=== PATIENT | female | born 1945 | race Caucasian/White ===

== ENCOUNTER → 2018-01-21 13:10 | Outpatient (CLI) | payer MEDICARE, OTHER, SELFPAY ==
--- NOTE | 2018-01-21 | DI.MG.S_ITS ---
BILATERAL DIGITAL SCREENING MAMMOGRAM 3D/2D WITH CAD WITH AUGMENTATION: 01/21/2018 CLINICAL: Routine screening. Comparison is made to exams dated: 11/01/2016 mammogram, 11/01/2015 mammogram, and 10/29/2014 mammogram - [facility]. There are scattered fibroglandular elements in both breasts. Current study was also evaluated with a Computer Aided Detection (CAD) system. Bilateral breast implants are stable. No significant masses, calcifications, or other findings are seen in either breast. There has been no significant interval change. IMPRESSION: NEGATIVE There is no mammographic evidence of malignancy. A 1 year screening mammogram is recommended. This exam was interpreted at Station ID: [id number]. NOTE: For mammograms, a report in lay terms will be sent to the patient. Approximately 15% of breast malignancies will not be visualized mammographically. In the management of a palpable breast mass, a negative mammogram must not discourage biopsy of a clinically suspicious lesion. Electronically Signed By: Eliezer king/clair:01/21/2018 15:58:32 letter sent: Normal Exam ACR BI-RADS Category 1: Negative [id number]
== END ==
PROVIDERS: Family Provider Family Medicine; PCP Family Medicine; Visit Provider Family Medicine
DX: Z12.31 Encounter for screening mammogram for malignant neoplasm of breast (principal)
CPT/HCPCS: 77063; 77067

== ENCOUNTER 2018-02-12 16:13 | Inpatient (IN) | payer MEDICARE, OTHER, SELFPAY ==
[2018-02-12 16:19] VITALS: BP 140/58; PULSE 81; RESP 16; TEMP 35.8; O2SAT 98; BMI 21.2
--- NOTE | 2018-02-12 16:25 | DI.RAD.S_ITS ---
PROCEDURE: XR RIBS RT MIN 3V W CXR 1V INDICATIONS: fell down 4-5 stairs with contusion and pain to R ribs TECHNIQUE: 2 views of the right ribs were acquired, along with a single view chest. COMPARISON: None. FINDINGS: Surgical changes and devices: A zipper projects over the left lung apex. Bones and chest wall: There are acute fractures of the lateral right eighth through 11th ribs. Lungs and pleura: There is a small-sized right apical pneumothorax. Mediastinum: Mediastinal contours appear normal. Heart size is normal. IMPRESSION: Small right apical pneumothorax with acute lateral right eighth through 11th rib fractures. Findings discussed with ordering provider Dr. Bc Mukherjee at approximately 5:26pm on 11/11/[address] Pollock. Dictated by: Deejay Pollock M.D. on 02/12/2018 at 17:23 Approved by: Deejay Pollock M.D. on 02/12/2018 at 17:29
--- NOTE | 2018-02-12 17:06 | ED.BACK ---
HPI - Back Pain/Injury <Tara Claire PA-C - Last Filed: 02/12/18 22:22> General Chief Complaint: Back Pain/Injury Stated Complaint: fall down stairs,back pain Time Seen by Provider: 02/12/18 16:34 Source: patient and family Mode of arrival: ambulatory History of Present Illness HPI Narrative: This 72-year-old female fell down 3-5 steps when she was trying to hurry down the stores to the restroom at their cabin. This happened in the middle of the night. She fell into a wrought iron bench leg, actually broke it. She states she took most of the impact with her ribs, did bump her shoulder and head slightly. She states that she had rib pain right away and feels like she his having muscle spasms in the ribs. She denies any pain elsewhere. She denies any neck or back pain. She denies any new weakness or paresthesia in the extremities. She does not have headache, has not had vomiting, vision change. She states it hurts to take a deep breath but she does not feel short of breath, has not had wheeze or cough. Also painful on the 2+ hour drive back air. She took tramadol which did not help. She took some of her 's oxycodone earlier which helped a little bit, but still in a lot of pain. Related Data Home Medications Medication Instructions Recorded Confirmed aspirin 81 mg PO QPM #0 10/03/11 02/12/18 cholecalciferol (vitamin D3) 2,000 unit PO QPM #0 10/03/11 02/12/18 [Vitamin D3] glucosamine sulfate [Cidatrine] 500 mg PO BID #0 10/25/16 02/12/18 multivitamin [Multiple Vitamins] 1 tab PO QDAY #0 10/25/16 02/12/18 vitamin B complex [B 1 tab PO QDAY #0 10/25/16 02/12/18 Complex-Vitamin B12] diclofenac sodium 1 tab PO BID 02/12/18 02/12/18 levothyroxine [Synthroid] 75 mcg PO QPM 02/12/18 02/12/18 oxybutynin chloride 5 mg PO QPM 02/12/18 02/12/18 tramadol 50 mg PO Q6H PRN PRN 02/12/18 02/12/18 Previous Rx's Medication Instructions Recorded estradiol [Estrace] 0.01 % VAGINAL QDAY #42.5 gm 04/02/17 sertraline 25 mg PO QDAY #30 tab 10/08/17 tretinoin [Retin-A] 1 steven TOPICAL QDAY #30 gm 10/08/17 Allergies Allergy/AdvReac Type Severity Reaction Status Date / Time cucumber [CUCUMBER] Allergy Mild stomach Unverified 10/03/17 12:55 pain Review of Systems <Tara Claire PA-C - Last Filed: 02/12/18 22:22> Review of Systems All systems reviewed & are unremarkable except as noted in HPI and below Exam <Tara Claire PA-C - Last Filed: 02/12/18 22:22> Narrative Exam Narrative: GENERAL APPEARANCE: Patient sitting comfortably, in no distress. HEENT: PERRL, EOMI, no scalp ecchymoses or abrasion, normal oropharynx NECK: Supple, no masses LUNGS: Clear to auscultation bilaterally, splinting. HEART: Rate and rhythm regular without murmur, normal S1 and S2, no S3 or S4. CHEST: Right flank small abrasions and patchy ecchymoses. Tender over the posterior to lateral right-sided mid to inferior ribs. No sternal tenderness. ABDOMEN: Soft, NT, ND, + BS x 4 quadrants NEUROLOGIC: Alert and oriented, normal speech, gait and coordination. MUSCULOSKELETAL: Full Csp AROM without cervical, thoracic, or lumbar point tenderness EXTREMITIES: No cyanosis or edema Initial Vital Signs Initial Vital Signs: Vital Signs Temperature 96.5 F L 02/12/18 16:19 Pulse Rate 81 02/12/18 16:19 Respiratory Rate 16 02/12/18 16:19 Blood Pressure 140/58 H 02/12/18 16:19 Pulse Oximetry 98 02/12/18 16:19 <DO Rohini Fletcher Last Filed: 02/13/18 07:15> Initial Vital Signs Initial Vital Signs: Vital Signs Temperature 96.5 F L 02/12/18 16:19 Pulse Rate 81 02/12/18 16:19 Respiratory Rate 16 02/12/18 16:19 Blood Pressure 140/58 H 02/12/18 16:19 Pulse Oximetry 98 02/12/18 16:19 Course <Tara Claire PA-C - Last Filed: 02/12/18 22:22> Decision to Admit Date: 02/12/18 Decision to Admit time: 17:40 Additional Information: Spoke with Dr. Nuñez agriculture consultant for patient's PCP. She has 4 rib fractures and a small pneumothorax. She is not hypoxic, however reasonable to admit for pain control. She is somewhat improved but still uncomfortable. I advised Dr. Nuñez shoulder XR ordered as well but not complete yet. Reviewed after transfer and negative for acute findings Orders Ordered: ED Orders 02/13/18 08:00 XR chest 2V DAILY Acetaminophen (Tylenol) 650 mg PO Q6HR PRN PRN Reason: As Needed for Fever/Mild Pain Aspirin (Aspirin Ec) 81 mg PO QPM CARA Cyclobenzaprine HCl (Flexeril) 5 mg PO Q8HR PRN PRN Reason: Spasms Last Admin: 02/12/18 20:42 Dose: 5 mg Docusate Sodium (Colace) 100 mg PO BID [facility] Last Admin: 02/12/18 20:42 Dose: 100 mg Hydromorphone HCl (Dilaudid) 0.5 mg IV Q2H PRN PRN Reason: Pain, Severe (7-10) Last Admin: 02/12/18 20:37 Dose: 0.5 mg Hydromorphone HCl (Dilaudid) 1 mg IV Q4H PRN PRN Reason: Pain, Severe (7-10) Last Admin: 02/12/18 22:26 Dose: 1 mg Sodium Chloride (Normal Saline 0.9%) 250 mls @ 21 mls/hr IV Q24H PRN PRN Reason: Flush Ibuprofen (Advil) 600 mg PO Q6HR PRN PRN Reason: As Needed for Fever/Mild Pain Levothyroxine Sodium (Synthroid) 75 mcg PO 0600 [facility] Last Admin: 02/13/18 05:38 Dose: 75 mcg Ondansetron HCl (Zofran) 4 mg IV Q4HR PRN PRN Reason: Nausea And Vomiting Ondansetron HCl (Zofran Odt) 4 mg PO Q4HR PRN PRN Reason: Nausea Oxybutynin (Ditropan) 5 mg PO QPM CARA Oxycodone/Acetaminophen (Percocet 5/325) 1 tab PO Q4HR PRN PRN Reason: Pain, Moderate (4-6) Last Admin: 02/13/18 05:38 Dose: 1 tab Admin: 02/12/18 23:59 Dose: 1 tab Discontinued Medications Diazepam (Valium) 5 mg IV NOW ONE Stop: 02/12/18 17:42 Last Admin: 02/12/18 19:32 Dose: 5 mg Hydromorphone HCl (Dilaudid) 1 mg IV NOW ONE Stop: 02/12/18 17:42 Last Admin: 02/12/18 19:32 Dose: 1 mg Ketorolac Tromethamine (Toradol) 15 mg IV NOW ONE Stop: 02/12/18 17:42 Last Admin: 02/12/18 18:14 Dose: 15 mg Vital Signs - 8 hr 02/13/18 00:31 02/13/18 04:38 Temperature 98.4 F 97.2 F L Pulse Rate 76 74 Respiratory Rate 14 25 H Blood Pressure 153/72 H 127/67 H Pulse Oximetry 100 100 <Bc Mukherjee DO - Last Filed: 02/13/18 07:15> Orders Ordered: ED Orders 02/13/18 08:00 XR chest 2V DAILY Acetaminophen (Tylenol) 650 mg PO Q6HR PRN PRN Reason: As Needed for Fever/Mild Pain Aspirin (Aspirin Ec) 81 mg PO QPM CARA Cyclobenzaprine HCl (Flexeril) 5 mg PO Q8HR PRN PRN Reason: Spasms Last Admin: 02/12/18 20:42 Dose: 5 mg Docusate Sodium (Colace) 100 mg PO BID [facility] Last Admin: 02/12/18 20:42 Dose: 100 mg Hydromorphone HCl (Dilaudid) 0.5 mg IV Q2H PRN PRN Reason: Pain, Severe (7-10) Last Admin: 02/12/18 20:37 Dose: 0.5 mg Hydromorphone HCl (Dilaudid) 1 mg IV Q4H PRN PRN Reason: Pain, Severe (7-10) Last Admin: 02/12/18 22:26 Dose: 1 mg Sodium Chloride (Normal Saline 0.9%) 250 mls @ 21 mls/hr IV Q24H PRN PRN Reason: Flush Ibuprofen (Advil) 600 mg PO Q6HR PRN PRN Reason: As Needed for Fever/Mild Pain Levothyroxine Sodium (Synthroid) 75 mcg PO 0600 [facility] Last Admin: 02/13/18 05:38 Dose: 75 mcg Ondansetron HCl (Zofran) 4 mg IV Q4HR PRN PRN Reason: Nausea And Vomiting Ondansetron HCl (Zofran Odt) 4 mg PO Q4HR PRN PRN Reason: Nausea Oxybutynin (Ditropan) 5 mg PO QPM CARA Oxycodone/Acetaminophen (Percocet 5/325) 1 tab PO Q4HR PRN PRN Reason: Pain, Moderate (4-6) Last Admin: 02/13/18 05:38 Dose: 1 tab Admin: 02/12/18 23:59 Dose: 1 tab Discontinued Medications Diazepam (Valium) 5 mg IV NOW ONE Stop: 02/12/18 17:42 Last Admin: 02/12/18 19:32 Dose: 5 mg Hydromorphone HCl (Dilaudid) 1 mg IV NOW ONE Stop: 02/12/18 17:42 Last Admin: 02/12/18 19:32 Dose: 1 mg Ketorolac Tromethamine (Toradol) 15 mg IV NOW ONE Stop: 02/12/18 17:42 Last Admin: 02/12/18 18:14 Dose: 15 mg Vital Signs - 8 hr 02/13/18 00:31 02/13/18 04:38 Temperature 98.4 F 97.2 F L Pulse Rate 76 74 Respiratory Rate 14 25 H Blood Pressure 153/72 H 127/67 H Pulse Oximetry 100 100 MDM - Back Pain/Injury <Tara Claire PA-C - Last Filed: 02/12/18 22:22> Lab Data Attestation: I reviewed the patient's lab results. Result diagrams: 02/12/18 18:00 02/12/18 18:00 Lab Results 02/12/18 02/12/18 02/12/18 Range/Units 18:00 18:00 19:25 WBC 8.9 (4.5-11.0) X10^3/uL RBC 4.42 (4.0-5.2) X10^6/uL Hgb 13.9 (12.0-16.0) g/dL Hct 41.4 (36-46) % MCV 93.8 (80-100) fL MCH 31.4 (26-34) PG MCHC 33.5 (30-36) % RDW 13.4 (11.6-14.8) % Plt Count 267 (150-400) X10^3/uL Neut % (Auto) 66.5 (50-75) % Lymph % (Auto) 22.7 L (25-40) % [place] % (Auto) 8.9 (3-14) % Eos % (Auto) 1.1 L (2-4) % Baso % (Auto) 0.8 (0-2) % Neut # (Auto) 5900 (1355-2223) /uL Sodium 135 L (137-145) mmol/L Potassium 3.8 (3.4-5.1) mmol/L Chloride 98 (98-107) mmol/L Carbon Dioxide 27 (22-32) mmol/L BUN 18 H (7-17) mg/dL Creatinine 0.50 L (0.52-1.04) mg/dL Estimated GFR > 60.0 (>60) mL/min BUN/Creatinine Ratio 36.0 H (6-22) Glucose 101 (80-110) mg/dL Calcium 9.4 (8.4-10.2) mg/dL Nasal Screen MRSA (PCR) Negative for mrsa (Negative) Imaging Data Chest x-ray: Radiologist's impression: [place] [address] XRay Report Signed Patient: Ritu Zhang MR#: [id number] : 1945 Acct:[id number] Age/Sex: 72 / F Date of Service: 02/12/18 Loc: ED Accession Number: [id number] Procedure: XR ribs RT min 3V w CXR1V Ordering Provider: Bc Mukherjee D.O. PROCEDURE: XR RIBS RT MIN 3V W CXR 1V INDICATIONS: fell down 4-5 stairs with contusion and pain to R ribs TECHNIQUE: 2 views of the right ribs were acquired, along with a single view chest. COMPARISON: None. FINDINGS: Surgical changes and devices: A zipper projects over the left lung apex. Bones and chest wall: There are acute fractures of the lateral right eighth through 11th ribs. Lungs and pleura: There is a small-sized right apical pneumothorax. Mediastinum: Mediastinal contours appear normal. Heart size is normal. IMPRESSION: Small right apical pneumothorax with acute lateral right eighth through 11th rib fractures. Findings discussed with ordering provider Dr. Bc Mukherjee at approximately 5:26pm on 11/11/[address] Pollock. Dictated by: Deejay Pollock M.D. on 02/12/2018 at 17:23 Approved by: Deejay Pollock M.D. on 02/12/2018 at 17:29 shoulder: Radiologist's impression: [place] [address] XRay Report Signed Patient: Ritu Zhang MR#: [id number] : 1945 Acct:[id number] Age/Sex: 72 / F Date of Service: 02/12/18 Loc: [facility] 106-1 Accession Number: [id number] Procedure: XR shoulder RT min 2V Ordering Provider: Tara Claire P.A-C PROCEDURE: XR SHOULDER RT MIN 2V INDICATIONS: pain, s/p fall TECHNIQUE: 3 views of the shoulder were acquired. COMPARISON: [facility], CR, XR RIBS RT MIN 3V W CXR 1V, 02/12/2018, 16:15. FINDINGS: Bones: No acute fracture or dislocation of the right shoulder. Subcentimeter opacity projecting over the right humeral head is consistent with an overlying clothes button, and is also found projecting over the soft tissues of the neck and arm. Soft tissues: Redemonstrated small right apical pneumothorax. IMPRESSION: #1. No acute fracture or dislocation of the right shoulder. #2. Redemonstrated small right apical pneumothorax. Dictated by: Deejay Pollock M.D. on 02/12/2018 at 19:32 Approved by: Deejay Pollock M.D. on 02/12/2018 at 19:35 <Bc Mukherjee DO - Last Filed: 02/13/18 07:15> Lab Data Lab Results 02/12/18 02/12/18 02/12/18 Range/Units 18:00 18:00 19:25 WBC 8.9 (4.5-11.0) X10^3/uL RBC 4.42 (4.0-5.2) X10^6/uL Hgb 13.9 (12.0-16.0) g/dL Hct 41.4 (36-46) % MCV 93.8 (80-100) fL MCH 31.4 (26-34) PG MCHC 33.5 (30-36) % RDW 13.4 (11.6-14.8) % Plt Count 267 (150-400) X10^3/uL Neut % (Auto) 66.5 (50-75) % Lymph % (Auto) 22.7 L (25-40) % [place] % (Auto) 8.9 (3-14) % Eos % (Auto) 1.1 L (2-4) % Baso % (Auto) 0.8 (0-2) % Neut # (Auto) 5900 (1491-3397) /uL Sodium 135 L (137-145) mmol/L Potassium 3.8 (3.4-5.1) mmol/L Chloride 98 (98-107) mmol/L Carbon Dioxide 27 (22-32) mmol/L BUN 18 H (7-17) mg/dL Creatinine 0.50 L (0.52-1.04) mg/dL Estimated GFR > 60.0 (>60) mL/min BUN/Creatinine Ratio 36.0 H (6-22) Glucose 101 (80-110) mg/dL Calcium 9.4 (8.4-10.2) mg/dL Nasal Screen MRSA (PCR) Negative for mrsa (Negative) Discharge Plan Departure Patient Disposition: Admitted as Observation Clinical Impression: Multiple rib fractures Discharge Date/Time: 02/12/18 19:34 Interventions: ED Discharge Assessment Last Done: 02/12/18 19:17 Admit Date/Time: 02/12/18 19:15 Admit Provider: Danya Nuñez <Bc Mukherjee DO - Last Filed: 02/13/18 07:15> Cosign ED Attending Nga Attestation: I was available for consultation during this patient's emergency department encounter
[2018-02-12 18:12] LABS: Add Manual Diff / Slide Review NO; Basophils Percent Auto 0.8 % (0-2); Eosinophils Percent Auto 1.1 % (2-4); Hematocrit 41.4 % (36-46); Hemoglobin 13.9 g/dL (12.0-16.0); Lymphocytes Percent Auto 22.7 % (25-40); Mean Corpuscular HGB Conc 33.5 % (30-36); Mean Corpuscular Hemoglobin 31.4 PG (26-34); Mean Corpuscular Volume 93.8 fL (80-100); Monocytes Percent Auto 8.9 % (3-14); Neutrophils Absolute Auto 5900 /uL (3000-5900); Neutrophils Percent Auto 66.5 % (50-75); Platelet Count 267 X10^3/uL (150-400); Red Blood Cell Count 4.42 X10^6/uL (4.0-5.2); Red Cell Distribution Width 13.4 % (11.6-14.8); White Blood Cell Count 8.9 X10^3/uL (4.5-11.0)
[2018-02-12] MEDS: KETOROLAC 60 MG/2 ML VIAL 15 MG IV (18:14)
--- NOTE | 2018-02-12 18:16 | PC.NURSE ---
valium and dilaudid will not scan
[2018-02-12 18:29] VITALS: BP 139/65; PULSE 74; RESP 12; O2SAT 100
[2018-02-12 18:29] LABS: Blood Urea Nitrogen 18 mg/dL (7-17); Calcium 9.4 mg/dL (8.4-10.2); Carbon Dioxide 27 mmol/L (22-32); Chloride 98 mmol/L (98-107); Estimated Glomerular Filt Rate > 60.0 mL/min (>60); Glucose 101 mg/dL (80-110); HEMOLYSIS < 15 (0-50); Potassium 3.8 mmol/L (3.4-5.1); Sodium 135 mmol/L (137-145)
--- NOTE | 2018-02-12 18:59 | DI.RAD.S_ITS ---
PROCEDURE: XR SHOULDER RT MIN 2V INDICATIONS: pain, s/p fall TECHNIQUE: 3 views of the shoulder were acquired. COMPARISON: [facility], CR, XR RIBS RT MIN 3V W CXR 1V, 02/12/2018, 16:15. FINDINGS: Bones: No acute fracture or dislocation of the right shoulder. Subcentimeter opacity projecting over the right humeral head is consistent with an overlying clothes button, and is also found projecting over the soft tissues of the neck and arm. Soft tissues: Redemonstrated small right apical pneumothorax. IMPRESSION: #1. No acute fracture or dislocation of the right shoulder. #2. Redemonstrated small right apical pneumothorax. Dictated by: Deejay Pollock M.D. on 02/12/2018 at 19:32 Approved by: Deejay Pollock M.D. on 02/12/2018 at 19:35
[2018-02-12] MEDS: HYDROMORPHONE 1 MG INJ IV (19:32)
[2018-02-12] MEDS: diazePAM 10 MG/2 ML SYRINGE 5 MG IV (19:32)
[2018-02-12 19:50] VITALS: BP 136/64; PULSE 63; RESP 20; TEMP 36.3; O2SAT 95
[2018-02-12 20:00] VITALS: BMI 21.2
--- NOTE | 2018-02-12 20:04 | PM.HP.1 ---
History of Present Illness Date Patient Seen: 02/12/18 Time Patient Seen: 20:19 Chief complaint: fall down stairs,back pain Narrative: PCP: Dr. Cordova. Patient is a 72-year-old female with hypothyroidism and urinary incontinence who suffered a fall today. Patient was at her cabin in the [facility] with her . She woke at approximately 2:00 a.m. needing to use the bathroom. On her way down the stairs she started to leak urine then slipped and fell, sliding down the stairs and hitting her right side on a wrought iron bench. The bench broke and she had immediate pain in her right side. She and her packed up the house and came back to [place]. She presented to the emergency department due to severe pain. Patient states the pain is sharp in her right side. Rates it 7/10. Her main complaint is muscle spasm. In the emergency department she was found to have fractures of the right eighth through eleventh ribs as well as a small right apical pneumothorax. Patient denied shortness of breath. Oxygen saturations were normal. She is being admitted for monitoring of her pneumothorax and pain control. In the emergency department she received Toradol, diazepam and Dilaudid with some improvement in her pain. Of note patient had a normal DEXA scan in 2013. Past medical history Hypothyroidism Urinary incontinence Arthritis Anxiety and depression Past surgical history Hysterectomy Face lift Breast augmentation x2 Cataract Family history Non contributory Social history Patient is . Former smoker. Uses alcohol. No drug use. Patient History Medical History Hypothyroidism (Chronic) Surgical History Status post breast augmentation Status post hysterectomy Family & Social History Family History: Reviewed 02/12/18 by Danya Nuñez DO Safety & Behavioral: Feels Safe in Current Yes Environment Been Physically Hurt or No Threatened By a Person Tobacco & Substance use: Smoking Status Never smoker alcohol intake frequency holiday/special occasion Substance Use Type does not use Meds Home Medications Medication Instructions Recorded Confirmed Type aspirin 81 mg PO QPM #0 10/03/11 02/12/18 History cholecalciferol (vitamin D3) 2,000 unit PO QPM #0 10/03/11 02/12/18 History [Vitamin D3] glucosamine sulfate [Cidatrine] 500 mg PO BID #0 10/25/16 02/12/18 History multivitamin [Multiple Vitamins] 1 tab PO QDAY #0 10/25/16 02/12/18 History vitamin B complex [B 1 tab PO QDAY #0 10/25/16 02/12/18 History Complex-Vitamin B12] estradiol [Estrace] 0.01 % VAGINAL QDAY #42.5 gm 04/02/17 02/12/18 Rx sertraline 25 mg PO QDAY #30 tab 10/08/17 02/12/18 Rx tretinoin [Retin-A] 1 steven TOPICAL QDAY #30 gm 10/08/17 02/12/18 Rx diclofenac sodium 1 tab PO BID 02/12/18 02/12/18 History levothyroxine [Synthroid] 75 mcg PO QPM 02/12/18 02/12/18 History oxybutynin chloride 5 mg PO QPM 02/12/18 02/12/18 History tramadol 50 mg PO Q6H PRN PRN 02/12/18 02/12/18 History Allergies Allergy/AdvReac Type Severity Reaction Status Date / Time cucumber [CUCUMBER] Allergy Mild stomach Unverified 10/03/17 12:55 pain Review of Systems Constitutional Constitutional: Denies fatigue and Reports fever(s) Cardiovascular Cardiovascular: Denies chest pain, Denies foot swelling and Denies shortness of breath Respiratory Respiratory: Denies cough and Denies dyspnea Musculoskeletal Musculoskeletal: Reports back pain Endocrine Endocrine: Denies fatigue Exam Vital Signs (past 8 hours): - 02/12/18 16:19 02/12/18 18:29 02/12/18 19:50 Temperature 96.5 F L 97.4 F L Pulse Rate 81 74 63 Respiratory Rate 16 12 20 Blood Pressure 140/58 H 136/64 H Blood Pressure [Right Arm] 139/65 H Pulse Oximetry 98 100 95 Oxygen Delivery Method Room Air Narrative Exam Narrative: General appearance: Well-appearing, NAD. Appears younger than stated age. Comfortable. Head: Normocephalic, atraumatic, without obvious abnormality. Eyes: Conjunctivae/corneas clear. Nose: Nares normal. Mucosa pink and moist. Throat: Moist mucosa. Neck: No adenopathy, supple, symmetric, trachea midline. Lungs: Clear to auscultation bilaterally, no wheezes or crackles. Heart: Regular rate and rhythm, S1, S2 normal, no murmur. Back: Large area of ecchymosis over the right flank. Tender to palpation. Extremities: Extremities normal, atraumatic, no edema. Neurologic: Alert and oriented x3. Gait not assessed. Psych: Alert and oriented to person, time, and place. Mood and affect appropriately modulated. Judgment and insight regarding health issues, within normal limits. Recent and remote memory intact. Objective Imaging Chest x-ray: Radiologist's impression: Rib x-ray IMPRESSION: Small right apical pneumothorax with acute lateral right eighth through 11th rib fractures. Findings discussed with ordering provider Dr. Bc Mukherjee at approximately 5:26pm on 11/11/[address] Pollock. Dictated by: Deejay Pollock M.D. on 02/12/2018 at 17:23 Approved by: Deejay Pollock M.D. on 02/12/2018 at 17:29 Shoulder x-ray: Radiologist's impression: IMPRESSION: #1. No acute fracture or dislocation of the right shoulder. #2. Redemonstrated small right apical pneumothorax. Dictated by: Deejay Pollock M.D. on 02/12/2018 at 19:32 Approved by: Deejay Pollock M.D. on 02/12/2018 at 19:35 Labs Result Diagrams: 02/12/18 18:00 02/12/18 18:00 Labs: Laboratory Results - last 24 hr 02/12/18 02/12/18 18:00 18:00 WBC 8.9 RBC 4.42 Hgb 13.9 Hct 41.4 MCV 93.8 MCH 31.4 MCHC 33.5 RDW 13.4 Plt Count 267 Neut % (Auto) 66.5 Lymph % (Auto) 22.7 L [place] % (Auto) 8.9 Eos % (Auto) 1.1 L Baso % (Auto) 0.8 Neut # (Auto) 5900 Sodium 135 L Potassium 3.8 Chloride 98 Carbon Dioxide 27 BUN 18 H Creatinine 0.50 L Estimated GFR > 60.0 BUN/Creatinine Ratio 36.0 H Glucose 101 Calcium 9.4 Assessment & Plan (1) Multiple rib fractures: Qualifiers: Encounter type: initial encounter Fracture healing: Fracture type: closed Laterality: right Qualified Code(s): S22.41XA - Multiple fractures of ribs, right side, initial encounter for closed fracture Current visit: Yes Status: Acute (2) Pneumothorax: Qualifiers: Pneumothorax type: traumatic Encounter type: initial encounter Qualified Code(s): S27.0XXA - Traumatic pneumothorax, initial encounter Current visit: Yes Status: Acute (3) Acquired hypothyroidism: Current visit: No Status: None (4) Urinary incontinence: Current visit: Yes Status: Chronic Plan: Assessment/Plan Narrative: 72-year-old female with hypothyroidism in urinary incontinence now with multiple right rib fractures and a small pneumothorax after a fall down the stairs early this morning. Fortunately patient is asymptomatic from the pneumothorax. No indication for chest tube placement. We are admitting for pain control and monitoring of her pneumothorax. Plan - Patient's main complaint is muscle spasms so will add Flexeril - Percocet is available with IV Dilaudid for more severe pain - Will check another x-ray in the morning to re-evaluate her pneumothorax - Continue levothyroxine and oxybutynin for hypothyroidism in urinary incontinence Diet: General diet DVT prophylaxis: SCDs Code status: Full code Disposition: Patient is currently under observation for pain control and the small pneumothorax. If pain is well controlled with oral medication and pneumothorax is stable or decreasing in size she may be able to go home tomorrow.
[2018-02-12 20:17] VITALS: BMI 21.2
[2018-02-12] MEDS: HYDROMORPHONE 0.5 MG INJ IV (20:37)
[2018-02-12] MEDS: DOCUSATE 100 MG CAPSULE PO (20:42)
[2018-02-12] MEDS: CYCLOBENZAPRINE 5 MG TABLET PO (20:42)
--- NOTE | 2018-02-12 21:10 | PC.NURSE ---
2100- Patient admitted to room 106 from Emergency. Patient is alert and oriented. Vitals are stable room air saturation is 97% Patient assisted to the bed and oriented to the room. Patient states her pain is 7/10. Await MD orders. Patient has right posterior rib fractures with a small pneumothorax. Patient denies SOB at this time. Patient advised to call for assist and is a high risk for falls. Patient is NSR on the monitor. Medicated for pain per MD order (here to see patient about 2014) Patient is stable
[2018-02-12] MEDS: HYDROMORPHONE 0.5 MG INJ 1 MG IV (22:26)
[2018-02-12] MEDS: OXYCODONE/ACETAMINOPHEN 5/325 TABLET 1 TAB PO (23:59)
[2018-02-13 00:31] VITALS: BP 153/72; PULSE 76; RESP 14; TEMP 36.9; O2SAT 100
[2018-02-13 04:38] VITALS: BP 127/67; PULSE 74; RESP 25; TEMP 36.2; O2SAT 100
[2018-02-13] MEDS: OXYCODONE/ACETAMINOPHEN 5/325 TABLET 1 TAB PO (05:38)
[2018-02-13] MEDS: LEVOTHYROXINE 75 MCG TABLET PO (05:38)
[2018-02-13 07:25] VITALS: BP 138/55; PULSE 81; RESP 18; TEMP 36.4; O2SAT 100
[2018-02-13] MEDS: DOCUSATE 100 MG CAPSULE PO ×2 (07:40→21:03)
[2018-02-13] MEDS: CYCLOBENZAPRINE 5 MG TABLET PO ×2 (07:40→16:30)
--- NOTE | 2018-02-13 08:00 | DI.RAD.S_ITS ---
PROCEDURE: XR CHEST 2V INDICATIONS: Pneumothorax TECHNIQUE: 2 views of the chest were acquired. COMPARISON: [facility], CR, XR RIBS RT MIN 3V W CXR 1V, 02/12/2018, 16:15. [facility], CR, XR SHOULDER RT MIN 2V, 02/12/2018, 18:38. FINDINGS: Surgical changes and devices: None. Lungs and pleura: Slight right lower hemithorax pleural effusion and increasing pneumothorax. Right apical pneumothorax identified yesterday was 4.2 cm maximal craniocaudad dimension and currently is 2.7 cm. Lungs are clear. Mediastinum: Mediastinal contours are normal. Heart size is normal. Bones and chest wall: No suspicious bony abnormalities. Soft tissues appear unremarkable. IMPRESSION: Interval reduction in right sided pneumothorax from 4.2 cm yesterday to 2.7 cm the day. Slight right lung base pleural effusion, subpulmonic Dictated by: Han Joel M.D. on 02/13/2018 at 8:33 Approved by: Han Joel M.D. on 02/13/2018 at 8:36
[2018-02-13] MEDS: OXYCODONE/ACETAMINOPHEN 5/325 TABLET 2 TAB PO ×4 (09:11→21:06)
[2018-02-13] MEDS: HYDROMORPHONE 0.5 MG INJ IV ×2 (10:23→23:44)
[2018-02-13 11:51] VITALS: BP 131/59; PULSE 72; RESP 18; TEMP 36.6; O2SAT 96
--- NOTE | 2018-02-13 13:30 | PM.PN.1 ---
Subjective Date Patient Seen: 02/13/18 Time Patient Seen: 07:30 Interval history: Pain is a little better this morning though still quite sore. Able to get out of bed independently. Can take a deep breath but it is painful. Rates pain as 7/10 this morning. Percocet helps significantly. Has needed some IV dilaudid. The Flexeril last night may have helped since the muscle spasms are not bothering her as much. Denies chest pain or SOB. Exam Vital Signs (past 8 hours): - 02/13/18 07:25 02/13/18 11:51 Temperature 97.6 F 98 F Pulse Rate 81 72 Respiratory Rate 18 18 Blood Pressure 138/55 H 131/59 H Pulse Oximetry 100 96 Oxygen Delivery Method Room Air Oxygen Flow Rate 0 Narrative Exam Narrative: General: Awake and alert, no acute distress. HEENT: NCAT, EOMI, moist oral mucosa CV: Regular rate and rhythm, no murmurs, rubs or gallops Lungs: CTAB, no wheezes, rales, or rhonchi Back: Large ecchymosis over right flank Extremities: Warm, no edema, 2+ pedal pulses bilaterally Objective Labs Result Diagrams: 02/12/18 18:00 02/12/18 18:00 Labs: Laboratory Results - last 24 hr 02/12/18 02/12/18 02/12/18 18:00 18:00 19:25 WBC 8.9 RBC 4.42 Hgb 13.9 Hct 41.4 MCV 93.8 MCH 31.4 MCHC 33.5 RDW 13.4 Plt Count 267 Neut % (Auto) 66.5 Lymph % (Auto) 22.7 L M[place]re[place] % (Auto) 8.9 Eos % (Auto) 1.1 L Baso % (Auto) 0.8 Neut # (Auto) 5900 Sodium 135 L Potassium 3.8 Chloride 98 Carbon Dioxide 27 BUN 18 H Creatinine 0.50 L Estimated GFR > 60.0 BUN/Creatinine Ratio 36.0 H Glucose 101 Calcium 9.4 Nasal Screen MRSA (PCR) Negative for mrsa Assessment & Plan (1) Pneumothorax: Qualifiers: Pneumothorax type: traumatic Encounter type: initial encounter Qualified Code(s): S27.0XXA - Traumatic pneumothorax, initial encounter Current visit: Yes Status: Acute (2) Multiple rib fractures: Qualifiers: Encounter type: initial encounter Fracture healing: Fracture type: closed Laterality: right Qualified Code(s): S22.41XA - Multiple fractures of ribs, right side, initial encounter for closed fracture Current visit: Yes Status: Acute Plan: Assessment/Plan Narrative: 72-year-old female with multiple rib fractures and small pneumothorax after a fall yesterday. Pain adequately controlled with oral and IV pain medications. Pneumothorax decreased in size today compared to yesterday. Patient continues to be asymptomatic with respect to pneumothorax. Plan - Continue oral pain medication with IV available for severe pain - Continue Flexeril as needed for spasm - Continue levothyroxine oxybutynin Anticipate discharge home tomorrow if pain is adequately controlled without IV medication. Quality VTE Deep Vein Thrombosis/Pulmonary Embolism Present on Admission: No
--- NOTE | 2018-02-13 15:58 | CM.DANOTE ---
Discharge Planning/Care Management DCP: assessment: case received, EMR reviewe, discussed case in 929 Care Team meeting, conferred with NIKKO Drummond and then met with pt. Introduced self and role. Pt is a 72 thom old female who admitted last evening to care of Dr. Nuñez/RAMONITA. PCP: Dr. Cordova/RAMONITA Payer: Medicare and [facility]. Admission status: INPT/confirmed by UR NIKKO Penaloza. Pt is ok'd for in room independence. Is using the BSC for now. She notes the rib fractures are amazingly painful but is able to get about the room without AD. PT has not thus far been ordered or, per RN, indicated. Pt confirms that she fell down the stairs at their cabin in the [place]. the stairs are old and steep. it was dark and I was using a flashlight in attempt to get to the bathroom on the main floor. She notes bladder urgency issues factored heavily into this event. Pt reports she and her already have plans to change their bedroom at the cabin to the main level. She says she expects Dr. Nuñez to let her go home tomorrow. DCP team will check in prn to assist with any needs that may arise. CM Discharge Assessment Start: 02/13/18 15:57 Freq: Status: Active Protocol: Document 02/13/18 15:57 ITV (Rec: 02/13/18 15:58 ITV [id number]) Discharge Planning Assessment Advance Directives? No History Provided By Patient Medical Record Prior Living Arrangements House Household Members spouse Independent with ADL's Yes Is patient alert and oriented? Yes Transportation Arrangement spouse Whiteboard Updated in Patient Room with Yes name and ext. # of Shot Examiner Review Status In Process Next Review Type Continued Stay Review
[2018-02-13] MEDS: OXYBUTYNIN 5 MG TABLET PO (16:30)
[2018-02-13] MEDS: ASPIRIN EC 81 MG TABLET PO (16:30)
--- NOTE | 2018-02-13 16:36 | PC.NURSE ---
1630- Patient lying in bed. Patient states she is having significant pain with any movement. Patient rates her pain at 7/10, medicated per orders. No crepitus appreciated to right chest. Right middle lobe and lower lobe coarse and dim at the base. Room air saturation 95% Patient is not tachypnic at this time. Patient encouraged to get up for dinner. SCD's are on bilaterally calfs. Will monitor.
[2018-02-13 23:55] VITALS: BP 121/66; PULSE 75; RESP 16; TEMP 36.7; O2SAT 96
[2018-02-14] MEDS: OXYCODONE/ACETAMINOPHEN 5/325 TABLET 2 TAB PO ×3 (02:11→11:23)
[2018-02-14] MEDS: CYCLOBENZAPRINE 5 MG TABLET PO ×2 (02:12→09:19)
[2018-02-14 04:38] VITALS: BP 132/54; PULSE 73; RESP 16; TEMP 36.4; O2SAT 95
[2018-02-14] MEDS: LEVOTHYROXINE 75 MCG TABLET PO (06:50)
[2018-02-14 08:11] VITALS: BP 137/72; PULSE 78; RESP 18; TEMP 36.9; O2SAT 97
[2018-02-14] MEDS: DOCUSATE 100 MG CAPSULE PO (08:13)
--- NOTE | 2018-02-14 08:51 | PM.DS.1 ---
History of Present Illness Date Patient Seen: 02/14/18 Time Patient Seen: 08:08 Chief complaint: fall down stairs,back pain Narrative: Patient is a 72-year-old female with hypothyroidism and urinary incontinence who suffered a fall today. Patient was at her cabin in the [facility] with her . She woke at approximately 2:00 a.m. needing to use the bathroom. On her way down the stairs she started to leak urine then slipped and fell, sliding down the stairs and hitting her right side on a wrought iron bench. The bench broke and she had immediate pain in her right side. She and her packed up the house and came back to [place]. She presented to the emergency department due to severe pain. Patient states the pain is sharp in her right side. Rates it 7/10. Her main complaint is muscle spasm. In the emergency department she was found to have fractures of the right eighth through eleventh ribs as well as a small right apical pneumothorax. Patient denied shortness of breath. Oxygen saturations were normal. She is being admitted for monitoring of her pneumothorax and pain control. In the emergency department she received Toradol, diazepam and Dilaudid with some improvement in her pain. Of note patient had a normal DEXA scan in 2013. Discharge Providers Date of admission: 02/13/18 11:26 Primary care physician: Gilberto Cordova MD Discharge provider: Yin Mcnally DO Summary Discharge Diagnosis: Right sided pneumothorax Right sided rib fractures osteoarthritis hypothyroid Hospital Course: 72-year-old female with right sided rib fractures 8-11 and small pneumothorax after a fall. Pneumothorax decreased in size during first hospital day. Patient remained asymptomatic with respect to pneumothorax. Pain at first was difficult to control and required IV. Cyclobenzaprine was added and helped. Patient was tolerating 10 mg of oxycodone every 4 hours at discharge. She take diclofenac at home and adding this is likely to give her more pain relief. Levothyroxine and oxybutinin were continued for her hypothyroid and urinary urgency. She was discharged in good condition. Follow up in clinic in 7-10 days with repeat xray. Exam Vital Signs (past 8 hours): - 02/14/18 04:38 02/14/18 08:11 Temperature 97.5 F L 98.5 F Pulse Rate 73 78 Respiratory Rate 16 18 Blood Pressure 132/54 H 137/72 H Pulse Oximetry 95 97 Oxygen Delivery Method Room Air Oxygen Flow Rate 0 Narrative Exam Narrative: General: Awake and alert, no acute distress. HEENT: NCAT, EOMI, moist oral mucosa CV: Regular rate and rhythm, no murmurs, rubs or gallops Lungs: CTAB, no wheezes, rales, or rhonchi Back: Large ecchymosis over right flank Extremities: Warm, no edema, 2+ pedal pulses bilaterally Objective Labs Result Diagrams: 02/12/18 18:00 02/12/18 18:00 Discharge Plan Discharge Plan Patient Disposition: Home Provider Discharge Instructions Diet: Diet as Tolerated Activity: as tolerated Skin/Wound/Dressing Care Report to your healthcare provider any signs of infection, such as:: chills, fever, night sweats and increased pain Discharge Data Primary Care Provider: Gilberto Cordova Attending Provider: Danya Nuñez Admit Date/Time: 02/13/18 11:26 Discharges patient from system. Discharge Date/Time: 02/14/18 13:00 Quality VTE Deep Vein Thrombosis/Pulmonary Embolism Present on Admission: No
--- NOTE | 2018-02-14 09:14 | CM.DPC ---
DCP Cont: Checked in with patient. Is planning to go home today. Asked her about support system, stated that she has her . Stated that her pain had decreased today, and feels that she is ready to go. Stated that yesterday, she was still having a lot of pain, and was not ready to be discharged then. Patient did not feel that she needed any additional resources at this time. P: To be discharged home today. Grisel Colorado RN/Wind Operations Supervisor
[2018-02-14] MEDS: KETOROLAC 30 MG/ML VIAL IV (09:19)
== END 2018-02-14 13:00 | disposition home or self-care (01) | DRG 200 ==
LOC: ED 19:08 → ICU 19:16
PROVIDERS: Admitting Provider Family Medicine; Emergency Provider Internal Medicine; Family Provider Family Medicine; PCP Family Medicine; Visit Provider Family Medicine
DX: S27.0XXA Traumatic pneumothorax, initial encounter (principal); S22.41XA Multiple fractures of ribs, right side, initial encounter for closed fracture; W10.8XXA Fall (on) (from) other stairs and steps, initial encounter; Y92.008 Other place in unspecified non-institutional (private) residence as the place of occurrence of the external cause; E03.9 Hypothyroidism, unspecified; R32 Unspecified urinary incontinence; M62.838 Other muscle spasm; F41.9 Anxiety disorder, unspecified; F32.9 Major depressive disorder, single episode, unspecified
CPT/HCPCS: 36591; 71046; 71101; 73030; 80048; 85025; 87797; 96374; 96375; 99232; 99238; 99282; 99284; G0378; J1170; J1885; J3360

== ENCOUNTER 2018-02-23 10:53 | Emergency (ER) | payer MEDICARE, OTHER, SELFPAY ==
--- NOTE | 2018-02-23 10:56 | DI.RAD.S_ITS ---
PROCEDURE: XR CHEST 2V INDICATIONS: recent pneumo TECHNIQUE: 2 views of the chest were acquired. COMPARISON: [facility], CR, XR CHEST 2V, 02/13/2018, 8:15. FINDINGS: Surgical changes and devices: None. Lungs and pleura: No recurrent pneumothorax visualized. There is a loculated appearing right basilar pleural effusion which is increased when compared with the study dated 02/13/18. There is likely a nipple shadow projected over the left lung base. Mediastinum: Mediastinal contours are normal. Heart size is normal. Bones and chest wall: No suspicious bony abnormalities. Soft tissues appear unremarkable. IMPRESSION: Increased right pleural effusion when compared with the prior study from earlier this month. No recurrent pneumothorax appreciated. Dictated by: Jovita Meyer M.D. on 02/23/2018 at 11:31 Approved by: Jovita Meyer M.D. on 02/23/2018 at 11:31
--- NOTE | 2018-02-23 11:02 | ED_ITS ---
HPI - Syncope General Chief Complaint: Syncope Stated Complaint: syncope Time Seen by Provider: 02/23/18 10:55 Source: patient and EMS Mode of arrival: EMS Limitations: no limitations History of Present Illness HPI narrative: Patient is a 72-year-old female who presents after syncopal episode after a bowel movement, which was diarrhea. She did not hit her head. She was having a bowel movement she stood up to wash her hands and fell backwards. She denies any chest pain heart palpitations or shortness of breath. She not had any abdominal pain nausea vomiting or fevers. Related Data Home Medications Medication Instructions Recorded Confirmed aspirin 81 mg PO QPM #0 10/03/11 02/12/18 cholecalciferol (vitamin D3) 2,000 unit PO QPM #0 10/03/11 02/12/18 [Vitamin D3] glucosamine sulfate [Cidatrine] 500 mg PO BID #0 10/25/16 02/12/18 multivitamin [Multiple Vitamins] 1 tab PO QDAY #0 10/25/16 02/12/18 vitamin B complex [B 1 tab PO QDAY #0 10/25/16 02/12/18 Complex-Vitamin B12] diclofenac sodium 1 tab PO BID 02/12/18 02/12/18 levothyroxine [Synthroid] 75 mcg PO QPM 02/12/18 02/12/18 oxybutynin chloride 5 mg PO QPM 02/12/18 02/12/18 tramadol 50 mg PO Q6H PRN PRN 02/12/18 02/12/18 Previous Rx's Medication Instructions Recorded estradiol [Estrace] 0.01 % VAGINAL QDAY #42.5 gm 04/02/17 sertraline 25 mg PO QDAY #30 tab 10/08/17 tretinoin [Retin-A] 1 steven TOPICAL QDAY #30 gm 10/08/17 docusate sodium 100 mg PO BID #30 cap 02/14/18 oxycodone-acetaminophen 2 tab PO Q4HR PRN #45 tab 02/14/18 cyclobenzaprine 5 mg tablet 5 mg PO Q8HR PRN #15 tab 02/20/18 Allergies Allergy/AdvReac Type Severity Reaction Status Date / Time cucumber [CUCUMBER] Allergy Mild stomach Verified 02/13/18 11:16 pain Review of Systems Review of Systems All systems reviewed & are unremarkable except as noted in HPI and below Constitutional Denies chills, Denies fever(s), Denies lethargy and Denies weakness Cardiovascular Denies chest pain at rest, Reports syncope, Denies irregular heart rhythm, Denies palpitations, Denies dyspnea and Denies dyspnea on exertion Respiratory Denies cough, Denies dyspnea, Denies dyspnea on exertion and Denies wheezing Gastrointestinal Gastrointestinal: Denies abdominal pain, Denies change in bowel habits, Denies diarrhea, Denies nausea and Denies vomiting Musculoskeletal Denies back pain, Denies muscle weakness, Denies numbness and Denies tingling Integumentary/Breasts Denies pruritus, Denies erythema, Denies rash and Denies wounds Neurologic Reports syncope, Denies numbness, Denies tingling and Denies weakness Endocrine Denies palpitations Allergic/Immunologic Denies wheezing PFSH Medical History Anxiety (Chronic) Cataracts, bilateral (Chronic ~1999) Depression (Chronic) Eczema (Chronic ~2004) Fibroids (Chronic ~1994) Gout (Chronic ~2010) History of urinary incontinence (Chronic ~1989) Hyperlipidemia (Chronic) Hypothyroidism (Chronic) Osteoarthritis (Chronic ~1994) Chicken pox (Resolved ~1949) Measles (Resolved) Surgical History Anesthesia (Resolved) Status post breast augmentation Status post hysterectomy (~1996) Social History household members: spouse Smoking Status: Never smoker alcohol intake: current Exam Initial Vital Signs Initial Vital Signs: Vital Signs Temperature 98.1 F 02/23/18 11:15 Pulse Rate 109 H 02/23/18 11:15 Respiratory Rate 15 02/23/18 11:15 Blood Pressure 120/58 L 02/23/18 11:15 Pulse Oximetry 95 02/23/18 11:15 GENERAL: Alert well-appearing elderly female no sign of trauma and in [no acute ] distress. HEENT: Head atraumatic,EOMI, pupils reactive, face symmetric, neck is supple no vertebral tenderness CARDIOVASCULAR: Regular rate and rhythm without murmurs, rubs or gallops. RESPIRATORY: Breath sounds equal bilaterally, no wheezes rales or rhonchi. ABDOMEN: Soft, nontender. Normoactive bowel sounds all 4 quadrants. No guarding or rebound. EXTREMITIES: Normal range of motion, no clubbing or edema. Neurovascularly intact NEUROLOGICAL: Alert and oriented x4.Normal gait and speech. Cranial nerves II through XII grossly intact. Good [id number], good [id number], strength equal bilaterally, no dysarthria or aphasia, sensation in tact to soft touch bilaterally, no visual changes, no facial droop SKIN: Warm, dry, no laceration, no petechiae, no rashes or lesions. Scores NIH Stroke Scale Level of Conciousness: Alert, keenly responsive Ask month/age: Answers both questions correctly. Open/close eyes, close hand: Performs both tasks correctly Best gaze horizontal: Normal Visual ogden: No visual loss Facial palsy: Normal symetrical movement Left arm drift: No drift for full 10 sec Right arm drift: No drift for full 10 sec Left leg drift: No drift for full 10 sec Right leg drift: No drift for full 10 sec Limb ataxia: Absent Sensory on face/arms/legs: Normal, no sensory loss Best language: No aphasia, normal Dysarthria: Normal Extinction or inattention: No abnormality Total NIH Stroke scale score: 0 Course Orders Ordered: Discontinued Medications Sodium Chloride (Normal Saline 0.9%) 1,000 mls @ 150 mls/hr IV CONT CARA Last Infusion: 02/23/18 12:33 Dose: 0 mls/hr Infusion: 02/23/18 12:27 Dose: 0 mls/hr Admin: 02/23/18 11:35 Dose: 150 mls/hr MDM - Syncope Lab Data Attestation: I reviewed the patient's lab results. Result diagrams: 02/23/18 10:45 02/23/18 10:45 Lab Results 02/23/18 02/23/18 Range/Units 10:45 10:45 WBC 10.9 (4.5-11.0) X10^3/uL RBC 3.86 L (4.0-5.2) X10^6/uL Hgb 12.1 (12.0-16.0) g/dL Hct 35.6 L (36-46) % MCV 92.4 (80-100) fL MCH 31.4 (26-34) PG MCHC 34.0 (30-36) % RDW 12.8 (11.6-14.8) % Plt Count 421 H (150-400) X10^3/uL Neut % (Auto) 62.5 (50-75) % Lymph % (Auto) 23.5 L (25-40) % [place] % (Auto) 8.0 (3-14) % Eos % (Auto) 5.5 H (2-4) % Baso % (Auto) 0.5 (0-2) % Neut # (Auto) 6800 H (8247-3394) /uL Sodium 141 (137-145) mmol/L Potassium 4.3 (3.4-5.1) mmol/L Chloride 104 (98-107) mmol/L Carbon Dioxide 27 (22-32) mmol/L BUN 14 (7-17) mg/dL Creatinine 0.50 L (0.52-1.04) mg/dL Estimated GFR > 60.0 (>60) mL/min BUN/Creatinine Ratio 28.0 H (6-22) Glucose 122 H (80-110) mg/dL Calcium 9.1 (8.4-10.2) mg/dL Total Bilirubin 0.5 (0.2-1.3) mg/dL AST 21 (14-36) IU/L ALT 23 (9-52) IU/L Alkaline Phosphatase 69 (38-126) U/L Total Creatine Kinase 28 L (30-135) U/L Troponin I < 0.012 (0.01-0.034) ng/mL Total Protein 6.7 (6.3-8.2) g/dL Albumin 3.8 (3.5-5.0) g/dL Globulin 2.9 (1.7-4.1) g/dL Albumin/Globulin Ratio 1.3 (1.0-2.8) Lipase 73 (23-300) U/L Imaging Data Chest x-ray: Radiologist's impression: PROCEDURE: XR CHEST 2V INDICATIONS: recent pneumo TECHNIQUE: 2 views of the chest were acquired. COMPARISON: [facility], , XR CHEST 2V, 02/13/2018, 8:15. FINDINGS: Surgical changes and devices: None. Lungs and pleura: No recurrent pneumothorax visualized. There is a loculated appearing right basilar pleural effusion which is increased when compared with the study dated 02/13/18. There is likely a nipple shadow projected over the left lung base. Mediastinum: Mediastinal contours are normal. Heart size is normal. Bones and chest wall: No suspicious bony abnormalities. Soft tissues appear unremarkable. IMPRESSION: Increased right pleural effusion when compared with the prior study from earlier this month. No recurrent pneumothorax appreciated. Dictated by: Jovita Meyer M.D. on 02/23/2018 at 11:31 ECG Data Attestation: I personally reviewed and interpreted this ECG as follows: Prior ECG tracings: not available for review Interpretation: normal sinus rhythm rate [address] changes or T-wave inversions no priors to compare partial right bundle branch block noted MDM Narrative Medical decision making narrative: The patient is ambulatory in the ED, no neuro deficits. 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 The fluid on the lung is likely from the pneumothorax, you should have a repeat chest x-ray to be sure it resolves *Continue to take medications as directed *Follow up with your primary care provider in 2-3 days *Return to ER if you should have increasing shortness of breath, chest pain recurrent fainting episode or any new, worsening or concerning symptoms Prescriptions: No Action aspirin 81 mg Tablet,Delayed Release (Dr/Ec) 81 mg PO QPM Qty: 0 RF: 0 cholecalciferol (vitamin D3) [Vitamin D3] 2,000 unit Capsule 2,000 unit PO QPM Qty: 0 RF: 0 multivitamin [Multiple Vitamins] 1 EACH tablet 1 tab PO QDAY Qty: 0 RF: 0 vitamin B complex [B Complex-Vitamin B12] 1 EACH tablet 1 tab PO QDAY Qty: 0 RF: 0 glucosamine sulfate [Cidatrine] 500 MG tablet 500 mg PO BID Qty: 0 RF: 0 estradiol [Estrace] 0.01 % cream 0.01 % Vaginal QDAY Qty: 42.5 RF: 3 sertraline 25 MG tablet 25 mg PO QDAY Qty: 30 RF: 0 tretinoin [Retin-A] 0.025 % cream 1 steven Topical QDAY Qty: 30 RF: 3 cyclobenzaprine 5 mg tablet 5 mg PO Q8HR PRN (Reason: Spasms) Qty: 15 RF: 0 diclofenac sodium 75 mg tablet,delayed release (DR/EC) 1 tab PO BID RF: 0 tramadol 50 MG tablet 50 mg PO Q6H PRN PRN (Reason: Pain, Moderate) RF: 0 levothyroxine [Synthroid] 75 MCG tablet 75 mcg PO QPM RF: 0 oxybutynin chloride 5 MG tablet 5 mg PO QPM RF: 0 oxycodone-acetaminophen 5-325 mg Tablet 2 tab PO Q4HR PRN (Reason: Pain, Severe (7-10)) Qty: 45 RF: 0 docusate sodium 100 mg Capsule 100 mg PO BID Qty: 30 RF: 0 Referrals: Gilberto Cordova MD [Primary Care Provider] -
[2018-02-23 11:05] LABS: Add Manual Diff / Slide Review NO; Basophils Percent Auto 0.5 % (0-2); Eosinophils Percent Auto 5.5 % (2-4); Hematocrit 35.6 % (36-46); Hemoglobin 12.1 g/dL (12.0-16.0); Lymphocytes Percent Auto 23.5 % (25-40); Mean Corpuscular Hemoglobin 31.4 PG (26-34); Mean Corpuscular Volume 92.4 fL (80-100); Neutrophils Absolute Auto 6800 /uL (3000-5900); Neutrophils Percent Auto 62.5 % (50-75); Platelet Count 421 X10^3/uL (150-400); Red Blood Cell Count 3.86 X10^6/uL (4.0-5.2); Red Cell Distribution Width 12.8 % (11.6-14.8); White Blood Cell Count 10.9 X10^3/uL (4.5-11.0)
[2018-02-23 11:15] VITALS: BP 120/58; PULSE 109; RESP 15; TEMP 36.7; O2SAT 95
[2018-02-23 11:19] VITALS: BP 123/47; PULSE 109; RESP 15; TEMP 36.7; O2SAT 95; BMI 20.5
[2018-02-23 11:19] LABS: Alanine Aminotransferase 23 IU/L (9-52); Albumin 3.8 g/dL (3.5-5.0); Albumin Globulin Ratio 1.3 (1.0-2.8); Alkaline Phosphatase 69 U/L (38-126); Aspartate Aminotransferase 21 IU/L (14-36); Bilirubin Total 0.5 mg/dL (0.2-1.3); Blood Urea Nitrogen 14 mg/dL (7-17); Calcium 9.1 mg/dL (8.4-10.2); Carbon Dioxide 27 mmol/L (22-32); Chloride 104 mmol/L (98-107); Creatine Kinase 28 U/L (30-135); Estimated Glomerular Filt Rate > 60.0 mL/min (>60); Globulin 2.9 g/dL (1.7-4.1); Glucose 122 mg/dL (80-110); HEMOLYSIS < 15 (0-50); Lipase 73 U/L (23-300); Potassium 4.3 mmol/L (3.4-5.1); Sodium 141 mmol/L (137-145); Total Protein 6.7 g/dL (6.3-8.2)
[2018-02-23 11:31] LABS: Troponin I < 0.012 ng/mL (0.01-0.034)
[2018-02-23] MEDS: SODIUM CHLORIDE 0.9% 1,000 ML 150 ML IV (11:35)
--- NOTE | 2018-02-23 12:26 | PC.NURSE ---
Pt denies any dizziness with ambulation.
== END 2018-02-23 13:08 | disposition home or self-care (01) ==
PROVIDERS: Emergency Provider Emergency Medicine; PCP Family Medicine
DX: R55 Syncope and collapse (principal); J90 Pleural effusion, not elsewhere classified
CPT/HCPCS: 36591; 71046; 80053; 82550; 82553; 83690; 84484; 85025; 93005; 93010; 96360; 99283; 99284

== ENCOUNTER → 2018-02-27 11:01 | Outpatient (CLI) | payer MEDICARE, OTHER, SELFPAY ==
[2018-02-12 20:17] VITALS: BMI 21.2
[2018-02-27 12:19] LABS: Add Manual Diff / Slide Review NO; Basophils Percent Auto 2.3 % (0-2); Hematocrit 31.3 % (36-46); Hemoglobin 10.6 g/dL (12.0-16.0); Lymphocytes Percent Auto 16.7 % (25-40); Mean Corpuscular HGB Conc 33.9 % (30-36); Mean Corpuscular Hemoglobin 31.5 PG (26-34); Mean Corpuscular Volume 92.8 fL (80-100); Monocytes Percent Auto 8.9 % (3-14); Neutrophils Absolute Auto 7300 /uL (3000-5900); Neutrophils Percent Auto 65.1 % (50-75); Platelet Count 511 X10^3/uL (150-400); Red Blood Cell Count 3.38 X10^6/uL (4.0-5.2); Red Cell Distribution Width 12.7 % (11.6-14.8); White Blood Cell Count 11.2 X10^3/uL (4.5-11.0)
[2018-02-27 12:21] LABS: INR 1.1 (0.9-1.3); Prothrombin Time 12.3 SECONDS (10.1-12.7)
== END ==
PROVIDERS: PCP Family Medicine; Visit Provider Family Medicine
DX: Z01.812 Encounter for preprocedural laboratory examination (principal); Z79.01 Long term (current) use of anticoagulants
CPT/HCPCS: 36415; 85025; 85610

== ENCOUNTER → 2018-03-04 13:39 | Outpatient (CLI) | payer MEDICARE, OTHER, SELFPAY ==
[2018-02-12 20:17] VITALS: BMI 21.2
--- NOTE | 2018-03-04 13:41 | DI.US.S_ITS ---
PROCEDURE: US THORACENTESIS INDICATIONS: PLEURAL EFFUSION TECHNIQUE: The indications, alternatives, benefits, risks, and complications of the procedure were explained to the patient. Written informed consent was obtained and placed in the chart. The chest was examined sonographically, and an appropriate site was chosen for thoracentesis. The skin was prepared and draped in the usual sterile fashion, and 1% lidocaine was infiltrated from the skin down through the pleural surface. A 19-gauge catheter-covered needle was then introduced into the pleural space, the catheter was advanced and the needle was withdrawn, and thereafter pleural fluid was aspirated. The catheter was then removed and a dressing was applied. COMPARISON: None. FINDINGS: Access site: Right hemithorax. Needle: One-Step centesis catheter with introducer needle. Fluid volume and description: 300 cc of dark red/brown fluid Fluid sent for diagnostic testing: No Medications: 1% lidocaine for local anaesthesia. Complications: None; post-procedural chest radiograph is pending to assess for pneumothorax. IMPRESSION: Successful ultrasound-guided thoracentesis. Dictated by: Eleazar Prince M.D. on 03/06/2018 at 12:04 Approved by: Eleazar Prince M.D. on 03/06/2018 at 12:04
--- NOTE | 2018-03-04 14:49 | DI.RAD.S_ITS ---
PROCEDURE: XR CHEST 1V INDICATIONS: POST THORACENTESIS TECHNIQUE: One view of the chest was acquired. COMPARISON: [facility], CR, XR CHEST 2V, 02/23/2018, 10:53. FINDINGS: Surgical changes and devices: None. Lungs and pleura: Persistent blunting of right costophrenic angle is noted consistent with small to moderate right pleural effusion. No gross pneumothorax. Left lung is clear. Mediastinum: Mediastinal contours appear normal. Heart size is normal. Bones and chest wall: Right posterior lateral eighth rib fracture is seen. IMPRESSION: Small to moderate residual right pleural effusion with right basilar atelectasis. No gross pneumothorax. Left lung is clear. Dictated by: Eleazar Prince M.D. on 03/04/2018 at 14:58 Approved by: Eleazar Prince M.D. on 03/04/2018 at 15:03
== END ==
PROVIDERS: PCP Family Medicine; Visit Provider Family Medicine
DX: J90 Pleural effusion, not elsewhere classified (principal); J98.11 Atelectasis
CPT/HCPCS: 32555; 71045

== ENCOUNTER → 2018-03-12 13:23 | Outpatient (CLI) | payer MEDICARE, OTHER, SELFPAY ==
[2018-02-12 20:17] VITALS: BMI 21.2
--- NOTE | 2018-03-12 13:25 | DI.RAD.S_ITS ---
PROCEDURE: XR CHEST 2V INDICATIONS: plural effusion TECHNIQUE: 2 views of the chest were acquired. COMPARISON: [facility], CR, XR RIBS RT MIN 3V W CXR 1V, 02/12/2018, 16:15. [facility], CR, XR CHEST 2V, 02/13/2018, 8:15. [facility], CR, XR CHEST 2V, 02/23/2018, 10:53. [facility], CR, XR CHEST 1V, 03/04/2018, 14:28. FINDINGS: Surgical changes and devices: Rim calcified mammoplasty implants are seen. Lungs and pleura: There is a moderate right-sided pleural effusion. The left lung appears clear. No definite pneumothorax. Mediastinum: Mediastinal contours are normal. Heart size is normal. Bones and chest wall: No suspicious bony abnormalities. Right inferior posterior lateral rib fractures are again seen. Soft tissues appear unremarkable. IMPRESSION: Moderate right-sided pleural effusion. No definite pneumothorax. Right posterior lateral rib fractures again seen anteriorly. Dictated by: Ridge London M.D. on 03/12/2018 at 14:18 Approved by: Ridge London M.D. on 03/12/2018 at 14:21
== END ==
PROVIDERS: PCP Family Medicine; Visit Provider Family Medicine
DX: J90 Pleural effusion, not elsewhere classified (principal); S22.31XA Fracture of one rib, right side, initial encounter for closed fracture
CPT/HCPCS: 71046

== ENCOUNTER → 2018-04-04 08:12 | Outpatient (CLI) | payer MEDICARE, OTHER, SELFPAY | PROVIDERS: PCP Family Medicine; Visit Provider Family Medicine | DX: E03.9 Hypothyroidism, unspecified (principal) | CPT/HCPCS: 36415; 84443 ==

== ENCOUNTER → 2018-07-05 15:26 | Outpatient (CLI) | payer MEDICARE, OTHER, SELFPAY | PROVIDERS: PCP Family Medicine; Visit Provider Internal Medicine Pulmonary Disease | DX: R91.1 Solitary pulmonary nodule (principal) | CPT/HCPCS: 87116 ==

== ENCOUNTER → 2018-07-11 16:30 | Outpatient (CLI) | payer MEDICARE, OTHER, SELFPAY | PROVIDERS: Visit Provider Internal Medicine Pulmonary Disease | DX: R91.1 Solitary pulmonary nodule (principal) | CPT/HCPCS: 87116 ==

== ENCOUNTER → 2018-07-19 17:11 | Outpatient (CLI) | payer MEDICARE, OTHER, SELFPAY | PROVIDERS: PCP Family Medicine; Visit Provider Internal Medicine Pulmonary Disease | DX: R91.1 Solitary pulmonary nodule (principal) | CPT/HCPCS: 87116 ==

== ENCOUNTER → 2018-10-28 12:10 | Outpatient (CLI) | payer MEDICARE, OTHER, SELFPAY ==
[2018-10-28 15:15] LABS: Thyroid Stimulating Hormone 0.07 uIU/mL (0.47-4.68)
== END ==
PROVIDERS: PCP Family Medicine; Visit Provider Family Medicine
DX: E03.9 Hypothyroidism, unspecified (principal)
CPT/HCPCS: 36415; 84443

== ENCOUNTER → 2018-11-04 13:17 | Outpatient (CLI) | payer MEDICARE, OTHER, SELFPAY ==
--- NOTE | 2018-11-04 13:18 | DI.US.S_ITS ---
PROCEDURE: US THYROID INDICATIONS: FLUCTUATIONG THYROID LEVELS TECHNIQUE: Real-time scanning was performed of the thyroid gland, with image documentation. COMPARISON: None. FINDINGS: Right: Thyroid lobe measures 3.7 x 0.9 x 1 point cm, and is homogeneous in echotexture. Left: Thyroid lobe measures 3.1 x 0.8 x 0.9 cm, and is homogenous in echotexture. Isthmus: 2.0 mm thick. Nodule number: 1 Location: Right mid Size: 0.5 x 0.3 x 0.4 cm. Composition: Predominantly solid Echogenicity: Isoechoic Shape: wider than tall. Margins: Smooth Echogenic foci: None Total points: 3 ACR TI-RADS category: Mildly suspicious Nodule number: 2 Location: Left mid lateral Size: 0.6 x 0.3 x 0.3 cm. Composition: Predominantly cystic Echogenicity: Hypoechoic Shape: wider than tall. Margins: Smooth Echogenic foci: None Total points: 2 ACR TI-RADS category: No suspicious. Nodule number: 3 Location: Left inferior Size: 0.6 x 0.4 x 0.4 cm. Composition: Predominantly solid Echogenicity: Hypoechoic Shape: wider than tall. Margins: Smooth Echogenic foci: None Total points: 4 ACR TI-RADS category: Moderately suspicious IMPRESSION: Bilateral thyroid nodules as above. Recommend continued followup ultrasound as detailed below. ACR TI-RADS definitions and recommendations: TI-RADS 1 (benign): 0 points. FNA not needed. TI-RADS 2 (not suspicious): 2 points. FNA not needed. TI-RADS 3 (mildly suspicious): 3 points. * FNA if 2.5 cm or larger, follow up if 1.5 cm or larger (at 1, 3, and 5 years). TI-RADS 4 (moderately suspicious): 4-6 points. * FNA if 1.5 cm or larger, follow up if 1 cm or larger (at 1, 2, 3, and 5 years). TI-RADS 5 (highly suspicious): 7 points or more. * FNA if 1 cm or larger, follow up if 0.5 cm or larger (every year for 5 years). Dictated by: Hudson WATKINS Interpreted: Abbie Garcia MD on 11/04/2018 at 14:37 Approved by: Abbie Garcia M.D. on 11/04/2018 at 16:18
== END ==
PROVIDERS: PCP Family Medicine; Visit Provider Family Medicine
DX: E03.9 Hypothyroidism, unspecified (principal); E04.2 Nontoxic multinodular goiter
CPT/HCPCS: 76536

== ENCOUNTER → 2018-12-23 15:24 | Outpatient (CLI) | payer MEDICARE, OTHER, SELFPAY ==
[2018-12-23 17:54] LABS: Thyroid Stimulating Hormone 0.79 uIU/mL (0.47-4.68)
== END ==
PROVIDERS: PCP Family Medicine; Visit Provider Family Medicine
DX: E03.9 Hypothyroidism, unspecified (principal)
CPT/HCPCS: 36415; 84443

== ENCOUNTER → 2019-03-21 16:20 | Outpatient (CLI) | payer MEDICARE, OTHER, SELFPAY | PROVIDERS: PCP Family Medicine; Visit Provider Internal Medicine Pulmonary Disease | DX: R91.1 Solitary pulmonary nodule (principal) | CPT/HCPCS: 87116 ==

== ENCOUNTER → 2019-03-24 16:04 | Outpatient (CLI) | payer MEDICARE, OTHER, SELFPAY | PROVIDERS: PCP Family Medicine; Visit Provider Internal Medicine Pulmonary Disease | DX: R91.1 Solitary pulmonary nodule (principal) | CPT/HCPCS: 87070; 87205 ==

== ENCOUNTER → 2019-03-25 15:36 | Outpatient (CLI) | payer MEDICARE, OTHER, SELFPAY | PROVIDERS: PCP Family Medicine; Visit Provider Internal Medicine Pulmonary Disease | DX: R91.1 Solitary pulmonary nodule (principal) | CPT/HCPCS: 36415; 87116 ==

== ENCOUNTER → 2019-11-20 10:22 | Outpatient (CLI) | payer MEDICARE, OTHER, SELFPAY ==
[2019-11-20 12:12] LABS: Add Manual Diff / Slide Review NO; Basophils Absolute Auto 100 /uL (0-100); Basophils Percent Auto 1.2 % (0-2); Eosinophils Absolute Auto 100 /uL (0-450); Eosinophils Percent Auto 2.7 % (2-4); Hemoglobin 13.4 g/dL (12.0-16.0); Lymphocytes Absolute Auto 1600 /uL (1100-4500); Lymphocytes Percent Auto 29.5 % (25-40); Mean Corpuscular HGB Conc 34.4 % (30-36); Mean Corpuscular Hemoglobin 32.2 PG (26-34); Mean Corpuscular Volume 93.5 fL (80-100); Monocytes Absolute Auto 600 /uL (0-900); Monocytes Percent Auto 10.6 % (3-14); Neutrophils Absolute Auto 3000 /uL (1500-7000); Platelet Count 245 X10^3/uL (150-400); Red Blood Cell Count 4.17 X10^6/uL (4.0-5.2); White Blood Cell Count 5.3 X10^3/uL (4.5-11.0)
[2019-11-20 12:27] LABS: Alanine Aminotransferase 23 IU/L (<35); Albumin 4.2 g/dL (3.5-5.0); Albumin Globulin Ratio 1.4 (1.0-2.8); Alkaline Phosphatase 74 U/L (38-126); Aspartate Aminotransferase 30 IU/L (14-36); BUN Creatinine Ratio 42.1 (6-22); Bilirubin Total 0.9 mg/dL (0.2-1.3); Blood Urea Nitrogen 24 mg/dL (7-17); Calcium 9.6 mg/dL (8.4-10.2); Carbon Dioxide 28 mmol/L (22-32); Chloride 105 mmol/L (98-107); Cholesterol 191 mg/dL (140-199); Estimated Glomerular Filt Rate > 60.0 mL/min (>60); Glucose 100 mg/dL (80-110); HDL Cholesterol 60 mg/dL (40-60); HEMOLYSIS < 15 (0-50); LDL Cholesterol Calculated 111 mg/dL (<100); Potassium 4.5 mmol/L (3.4-5.1); Sodium 140 mmol/L (137-145); Total Protein 7.2 g/dL (6.3-8.2); Triglycerides 99 mg/dL (35-150)
[2019-11-20 13:04] LABS: TSH w/ Reflex to FT4 0.79 uIU/mL (0.47-4.68)
== END ==
PROVIDERS: PCP Family Medicine; Referring Provider Family Medicine; Visit Provider Family Medicine
DX: Z00.00 Encounter for general adult medical examination without abnormal findings (principal); E03.9 Hypothyroidism, unspecified; Z13.6 Encounter for screening for cardiovascular disorders
CPT/HCPCS: 36415; 80053; 80061; 84443; 85025

== ENCOUNTER → 2019-11-28 13:41 | Outpatient (CLI) | payer MEDICARE, OTHER, SELFPAY | PROVIDERS: PCP Family Medicine; Referring Provider Family Medicine; Visit Provider Family Medicine | DX: Z13.820 Encounter for screening for osteoporosis (principal); M85.852 Other specified disorders of bone density and structure, left thigh; Z78.0 Asymptomatic menopausal state; E07.9 Disorder of thyroid, unspecified; Z87.891 Personal history of nicotine dependence | CPT/HCPCS: 77080 ==

== ENCOUNTER → 2020-01-28 17:17 | Outpatient (CLI) | payer MEDICARE, OTHER, SELFPAY ==
--- NOTE | 2020-01-28 | DI.MG.S_ITS ---
BILATERAL DIGITAL SCREENING MAMMOGRAM 3D/2D WITH CAD WITH AUGMENTATION: 01/28/2020 CLINICAL: Routine screening. Comparison is made to exams dated: 01/21/2018 mammogram, 11/01/2016 mammogram, and 11/01/2015 mammogram - [facility]. There are scattered fibroglandular elements in both breasts. Current study was also evaluated with a Computer Aided Detection (CAD) system. There are new grouped fine punctate calcifications in the right breast at 11 o'clock anterior depth. No other significant masses, calcifications, or other findings are seen in either breast. IMPRESSION: INCOMPLETE: NEEDS ADDITIONAL IMAGING EVALUATION The new grouped fine punctate calcifications in the right breast are indeterminate. Mediolateral, spot magnification, and additional views are recommended. This exam was interpreted at Station ID: [id number]. NOTE: For mammograms, a report in lay terms will be sent to the patient. Approximately 15% of breast malignancies will not be visualized mammographically. In the management of a palpable breast mass, a negative mammogram must not discourage biopsy of a clinically suspicious lesion. Electronically Signed By: Tremaine griffith/clair:01/29/2020 08:07:07 letter sent: Additional Imaging Needed ACR BI-RADS Category 0: Incomplete 3340F
== END ==
PROVIDERS: PCP Family Medicine; Referring Provider Family Medicine; Visit Provider Family Medicine
DX: Z12.31 Encounter for screening mammogram for malignant neoplasm of breast (principal)
CPT/HCPCS: 77063; 77067

== ENCOUNTER → 2020-02-18 15:01 | Outpatient (CLI) | payer MEDICARE, OTHER, SELFPAY ==
--- NOTE | 2020-02-18 15:14 | DI.MG.S_ITS ---
Patient Name: PAULO SORTO date: 1945 Sex: F Attending Physician: Art Indications: Date: 02/18/2020 15:04 At the request of: LAURA DONAHUE Procedure: MM special view RT UNILATERAL RIGHT DIGITAL DIAGNOSTIC MAMMOGRAM 3D/2D WITH ADDITIONAL VIEWS: 02/18/2020 CLINICAL: Additional evaluation requested from prior study. Comparison is made to exams dated: 01/28/2020 mammogram, 01/21/2018 mammogram, and 11/01/2016 mammogram - [facility]. There are scattered fibroglandular elements in right breast. Redemonstration of previously described grouped punctate round calcifications in the right breast at 11 o'clock anterior depth. No other significant masses or calcifications are seen in the breast. IMPRESSION: PROBABLY BENIGN The grouped punctate round calcifications in the right breast most likely are a degenerating fibroadenoma and are probably benign. A follow-up right mammogram in 6 months is recommended to demonstrate stability. Findings and recommendations were conveyed to the patient during today's visit. This exam was interpreted at Station ID: [id number]. NOTE: For mammograms, a report in lay terms will be sent to the patient. Approximately 15% of breast malignancies will not be visualized mammographically. In the management of a palpable breast mass, a negative mammogram must not discourage biopsy of a clinically suspicious lesion. Electronically Signed By: Andrew Weiss M.D. aty/:02/18/2020 15:56:12 Continued Report - Page 2 of 2 Patient Name: PAULO SORTO date: 1945 Sex: F Attending Physician: Art Indications: Date: 02/18/2020 15:04 At the request of: LAURA DONAHUE Procedure: MM special view RT letter sent: Followup Recommended ACR BI-RADS Category 3: Probably benign [id number]
== END ==
PROVIDERS: PCP Family Medicine; Referring Provider Family Medicine; Visit Provider Family Medicine
DX: R92.8 Other abnormal and inconclusive findings on diagnostic imaging of breast (principal); R92.1 Mammographic calcification found on diagnostic imaging of breast
CPT/HCPCS: 77065; G0279

== ENCOUNTER → 2020-09-01 14:53 | Outpatient (CLI) | payer MEDICARE, OTHER, SELFPAY ==
--- NOTE | 2020-09-01 | DI.MG.S_ITS ---
UNILATERAL RIGHT DIGITAL DIAGNOSTIC MAMMOGRAM 3D/2D WITH AUGMENTATION: 09/01/2020 CLINICAL: Short term follow up of the right breast. Comparison is made to exams dated: 02/18/2020 mammogram, 01/28/2020 mammogram, and 01/21/2018 mammogram - [facility]. There are scattered fibroglandular elements in right breast. There are grouped punctate round calcifications in the right breast at 11 o'clock anterior depth. No other significant masses or calcifications are seen in the breast. IMPRESSION: PROBABLY BENIGN The grouped punctate round calcifications in the right breast are probably benign. A follow-up mammogram in 6 months is recommended. Findings and recommendations were discussed with the patient during today's visit. A follow-up mammogram in 6 months is recommended to demonstrate stability. This exam was interpreted at Station ID: [id number]. NOTE: For mammograms, a report in lay terms will be sent to the patient. Approximately 15% of breast malignancies will not be visualized mammographically. In the management of a palpable breast mass, a negative mammogram must not discourage biopsy of a clinically suspicious lesion. Electronically Signed By: Gilberto Swift M.D., jr/clair:09/01/2020 15:50:25 letter sent: Followup Recommended ACR BI-RADS Category 3: Probably benign [id number]
== END ==
PROVIDERS: PCP Family Medicine; Referring Provider Family Medicine; Visit Provider Family Medicine
DX: R92.8 Other abnormal and inconclusive findings on diagnostic imaging of breast (principal); R92.1 Mammographic calcification found on diagnostic imaging of breast
CPT/HCPCS: 77065; G0279

== ENCOUNTER → 2020-12-07 09:55 | Outpatient (CLI) | payer MEDICARE, OTHER, SELFPAY ==
[2020-12-07 11:14] LABS: Add Manual Diff / Slide Review NO; Basophils Absolute Auto 100 /uL (0-100); Eosinophils Absolute Auto 200 /uL (0-450); Eosinophils Percent Auto 4.8 % (2-4); Hematocrit 37.4 % (36-46); Hemoglobin 12.3 g/dL (12.0-16.0); Lymphocytes Absolute Auto 1600 /uL (1100-4500); Lymphocytes Percent Auto 32.7 % (25-40); Mean Corpuscular HGB Conc 32.9 % (30-36); Mean Corpuscular Volume 94.2 fL (80-100); Monocytes Absolute Auto 500 /uL (0-900); Monocytes Percent Auto 9.2 % (3-14); Neutrophils Absolute Auto 2500 /uL (1500-7000); Neutrophils Percent Auto 51.3 % (50-75); Platelet Count 251 X10^3/uL (150-400); Red Blood Cell Count 3.97 X10^6/uL (4.0-5.2); Red Cell Distribution Width 13.2 % (11.6-14.8)
[2020-12-07 11:52] LABS: Alanine Aminotransferase 24 IU/L (<35); Albumin 3.9 g/dL (3.5-5.0); Albumin Globulin Ratio 1.4 (1.0-2.8); Alkaline Phosphatase 62 U/L (38-126); Aspartate Aminotransferase 28 IU/L (14-36); BUN Creatinine Ratio 34.4 (6-22); Bilirubin Total 0.7 mg/dL (0.2-1.3); Blood Urea Nitrogen 22 mg/dL (7-17); Calcium 9.4 mg/dL (8.4-10.2); Carbon Dioxide 26 mmol/L (22-32); Chloride 105 mmol/L (98-107); Cholesterol 202 mg/dL (140-199); Estimated Glomerular Filt Rate > 60.0 mL/min (>60); Globulin 2.7 g/dL (1.7-4.1); Glucose 92 mg/dL (80-110); HDL Cholesterol 63 mg/dL (40-60); HEMOLYSIS < 15 (0-50); LDL Cholesterol Calculated 116 mg/dL (<100); Potassium 4.4 mmol/L (3.4-5.1); Sodium 140 mmol/L (137-145); Total Protein 6.6 g/dL (6.3-8.2); Triglycerides 114 mg/dL (35-150)
[2020-12-07 12:21] LABS: TSH w/ Reflex to FT4 0.84 uIU/mL (0.47-4.68)
== END ==
PROVIDERS: PCP Family Medicine; Referring Provider Family Medicine; Visit Provider Family Medicine
DX: E03.9 Hypothyroidism, unspecified (principal); I10 Essential (primary) hypertension
CPT/HCPCS: 36415; 80053; 80061; 84443; 85025

== ENCOUNTER → 2021-03-03 12:38 | Outpatient (CLI) | payer MEDICARE, OTHER, SELFPAY ==
--- NOTE | 2021-03-03 | DI.MG.S_ITS ---
BILATERAL DIGITAL DIAGNOSTIC MAMMOGRAM 3D/2D WITH AUGMENTATION: 03/03/2021 CLINICAL: Patient returns for a 6 month follow up of the right breast, due for bilateral exam. Comparison is made to exams dated: 09/01/2020 mammogram, 02/18/2020 mammogram, 01/28/2020 mammogram, and 01/21/2018 mammogram - [facility]. There are scattered fibroglandular elements in both breasts. There are grouped fine punctate calcifications in the right breast at 11 o'clock anterior depth. Visualization is limited due to patient's breast implants but the calcifications do not appear significantly changed. The implants appear intact. No other significant masses, calcifications, or other findings are seen in either breast. IMPRESSION: PROBABLY BENIGN The grouped fine punctate calcifications in the right breast are probably benign. A follow-up mammogram in 6 months is recommended. A follow-up mammogram in 6 months is recommended to demonstrate stability. This exam was interpreted at Station ID: [id number]. NOTE: For mammograms, a report in lay terms will be sent to the patient. Approximately 15% of breast malignancies will not be visualized mammographically. In the management of a palpable breast mass, a negative mammogram must not discourage biopsy of a clinically suspicious lesion. Electronically Signed By: Tremaine griffith/:03/03/2021 14:00:21 letter sent: Followup Recommended ACR BI-RADS Category 3: Probably benign [id number]
== END ==
PROVIDERS: PCP Family Medicine; Referring Provider Family Medicine; Visit Provider Family Medicine
DX: R92.8 Other abnormal and inconclusive findings on diagnostic imaging of breast (principal); R92.1 Mammographic calcification found on diagnostic imaging of breast
CPT/HCPCS: 77066; G0279

== ENCOUNTER → 2021-06-06 14:25 | Outpatient (CLI) | payer MEDICARE, OTHER, SELFPAY ==
--- NOTE | 2021-06-06 14:27 | DI.RAD.S_ITS ---
PROCEDURE: XR LUMBAR SPINE 2-3V INDICATIONS: Low back pain - SI joint TECHNIQUE: 3 views of the lumbar spine were acquired. COMPARISON: None. FINDINGS: Bones: 5 [id number] vertebrae are present. Grade 1 spondylolisthesis L3-L4. Multilevel disc degeneration, most notably and severe at the L3-L4, L4-L5 and to greater degree L5-S1 levels. Moderate L3-L4, L4-L5 and L5-S1 facet joint arthropathy. No vertebral body compression fractures. No suspicious bony lesions. Soft tissues: Overlying bowel gas pattern is normal. No suspicious soft tissue calcifications. Vascular calcifications indicate atherosclerosis. IMPRESSION: Multilevel spondylosis. Dictated by: Hudson Hebert Kika Interpreted: Gilberto Swift MD on 06/06/2021 at 15:20 Transcribed by: NOREEN on 06/06/2021 at 15:21 Approved by: Gilberto Swift M.D. on 06/08/2021 at 16:00
== END ==
PROVIDERS: PCP Family Medicine; Referring Provider Family Medicine; Visit Provider Physician Assistant
DX: M47.817 Spondylosis without myelopathy or radiculopathy, lumbosacral region (principal); M47.816 Spondylosis without myelopathy or radiculopathy, lumbar region; M54.31 Sciatica, right side; M54.50 Low back pain, unspecified
CPT/HCPCS: 72100

== ENCOUNTER → 2021-06-09 12:06 | Outpatient (CLI) | payer MEDICARE, OTHER, SELFPAY ==
--- NOTE | 2021-06-09 12:08 | DI.MRI.S_ITS ---
PROCEDURE: MR LUMBAR SPINE WO CON INDICATIONS: LBP w/Sciatica R side; pain w/bearing down; hx of OA TECHNIQUE: Noncontrast sagittal T1 spin echo and T2 fast echo, sagittal STIR, axial T1 and T2 fast spin echo through the lumbar spine. In cases with scoliosis, additional coronal T2 fast spin echo may be performed. COMPARISON: [facility], CR, XR LUMBAR SPINE 2-3V, 06/06/2021, 14:24. FINDINGS: Image quality: Excellent. Alignment and Curvature: There is grade 1 anterolisthesis of L3 on L4 measuring 3 mm. Bone Marrow: Marrow is of normal overall signal. No acute vertebral body compression fractures. Spinal Cord: Conus medullaris terminates at the L1-2 disc space level. Visualized cord demonstrates normal signal and size. Paraspinous Soft Tissues: No paravertebral masses. A T2-hyperintense lesion in the posterior right hepatic lobe is most likely a cyst. There is grade 2 fatty infiltration of the paraspinous musculature. T12-L1: There is disc desiccation and circumferential disc bulging with mild bilateral facet hypertrophy. Findings result in mild narrowing of the spinal canal without significant neural foraminal narrowing. L1-L2: There is disc desiccation and mild circumferential disc bulging with mild bilateral facet hypertrophy, which is not result in significant spinal canal stenosis or neural foraminal narrowing. L2-L3: There is disc desiccation and moderate circumferential disc bulging with moderate bilateral facet hypertrophy and bulging of the ligamentum flavum, which results in mild narrowing of the central spinal canal without significant neural foraminal narrowing. L3-L4: There is grade 1 anterolisthesis of L3 on L4 with uncovering of the disc as well as disc desiccation, loss of disc space height, and circumferential disc bulging. Moderate to severe bilateral facet hypertrophy and buckling of the ligamentum flavum are also seen. There is a 0.9 x 0.6 x 1.1 cm synovial cyst along the anteromedial margin of the left facet joint (image 5 of series 20, and image 10 of series 4), which impinges upon the dorsal lateral aspect of the thecal sac. Findings result in severe narrowing of the spinal canal, effacement of the lateral recesses, and [id number] right and mild left neural foraminal narrowing. L4-L5: There is disc desiccation and severe disc space narrowing with circumferential disc-osteophyte complex as well as severe left and mild right facet hypertrophy. Findings result in mild right and moderate to severe left neural foraminal narrowing. L5-S1: There is loss of disc space height with circumferential mild disc-osteophyte complex as well as mild right facet hypertrophy in possibly ankylosis of the left facet joint. Findings results in moderate bilateral neural foraminal narrowing without significant spinal canal stenosis. IMPRESSION: 1. At L3-4, grade 1 anterolisthesis of L3 on L4 as well as degenerative changes and a synovial cyst arising from the left facet joint result in severe narrowing of the spinal canal and effacement of the lateral recesses. 2. At L4-5, degenerative changes result in moderate to severe left neural foraminal narrowing. 3. Additional multilevel mild to moderate multilevel degenerative disc disease and facet hypertrophy as described in detail in the body of the report. No additional high-grade spinal canal stenosis or neural foraminal narrowing. Recommend correlation with detailed neurological exam. Dictated by: Stevan Owen M.D. on 06/09/2021 at 14:09 Approved by: Stevan Owen M.D. on 06/09/2021 at 14:32
== END ==
PROVIDERS: PCP Family Medicine; Referring Provider Physician Assistant; Visit Provider Physician Assistant
DX: M47.26 Other spondylosis with radiculopathy, lumbar region (principal); M51.16 Intervertebral disc disorders with radiculopathy, lumbar region; M43.16 Spondylolisthesis, lumbar region; M48.061 Spinal stenosis, lumbar region without neurogenic claudication; M54.50 Low back pain, unspecified
CPT/HCPCS: 72148

== ENCOUNTER → 2021-08-23 14:01 | Outpatient (CLI) | payer MEDICARE, OTHER, SELFPAY ==
--- NOTE | 2021-08-23 | DI.MG.S_ITS ---
UNILATERAL RIGHT DIGITAL DIAGNOSTIC MAMMOGRAM 3D/2D SHORT-TERM FOLLOW-UP WITH AUGMENTATION: 08/23/2021 CLINICAL: Short term follow up of the right breast. Comparison is made to exams dated: 03/03/2021 mammogram, 09/01/2020 mammogram, 02/18/2020 mammogram, 01/28/2020 mammogram, and 01/21/2018 mammogram - [facility]. There are scattered fibroglandular elements in right breast. There are stable grouped fine and punctate calcifications in the right breast at 11 o'clock anterior depth. These are difficult to visualize due to the breast implant. Best seen on the MLO view. No other significant masses or calcifications are seen in the breast. Right breast implant is intact. IMPRESSION: PROBABLY BENIGN Stable grouped fine and punctate calcifications in the right breast are probably benign. A follow-up mammogram in 6 months is recommended to demonstrate long-term stability. Patient will also be due for left breast mammogram at that time. Exam findings were conveyed to the patient. This exam was interpreted at Station ID: [id number]. NOTE: For mammograms, a report in lay terms will be sent to the patient. Approximately 15% of breast malignancies will not be visualized mammographically. In the management of a palpable breast mass, a negative mammogram must not discourage biopsy of a clinically suspicious lesion. Electronically Signed By: Vishnu Garcia M.D. [facility] [place]:08/23/2021 15:07:24 letter sent: Followup Recommended ACR BI-RADS Category 3: Probably benign [id number]
== END ==
PROVIDERS: PCP Family Medicine; Referring Provider Family Medicine; Visit Provider Family Medicine
DX: R92.8 Other abnormal and inconclusive findings on diagnostic imaging of breast (principal); R92.1 Mammographic calcification found on diagnostic imaging of breast
CPT/HCPCS: 77065; G0279

== ENCOUNTER → 2022-04-20 13:13 | Outpatient (CLI) | payer MEDICARE, OTHER, SELFPAY ==
[2021-08-23 15:10] VITALS: BMI 21.2
--- NOTE | 2022-04-20 13:15 | DI.MG.S_ITS ---
BILATERAL DIGITAL DIAGNOSTIC MAMMOGRAM 3D/2D WITH AUGMENTATION: 04/20/2022 CLINICAL: Short term follow up of the right breast, due for bilateral imaging. Comparison is made to exams dated: 08/23/2021 mammogram, 03/03/2021 mammogram, 09/01/2020 mammogram, 02/18/2020 mammogram, 01/28/2020 mammogram, and 01/21/2018 mammogram - [facility]. There are scattered areas of fibroglandular density in both breasts (category b / 25%-50% glandular tissue). Bilateral subglandular silicone implants are stable. There are stable benign grouped fine punctate calcifications in the right breast at 11 o'clock anterior depth. These calcifications have been stable dating back to the prior exam from 02/18/2020, and are therefore considered benign. No other significant masses, calcifications, or other findings are seen in either breast. IMPRESSION: BENIGN There is no mammographic evidence of malignancy. Return to annual mammogram screening schedule is recommended. Based on the Tyrer Cuzick model (a risk assessment model) the patient's lifetime risk is 2.0% and her 10 year risk is 0.0%. According to the ACR, ACS, and NCCN guidelines, an annual breast MRI exam along with mammogram is recommended if the patient's lifetime risk is 20% or greater. This exam was interpreted at Station ID: [id number]. NOTE: For mammograms, a report in lay terms will be sent to the patient. Approximately 15% of breast malignancies will not be visualized mammographically. In the management of a palpable breast mass, a negative mammogram must not discourage biopsy of a clinically suspicious lesion. Electronically Signed By: Stevan barillas/clair:04/20/2022 20:11:32 letter sent: Normal Exam ACR BI-RADS Category 2: Benign Finding(s) 3342F
== END ==
PROVIDERS: PCP Family Medicine; Referring Provider Family Medicine; Visit Provider Family Medicine
DX: R92.8 Other abnormal and inconclusive findings on diagnostic imaging of breast (principal); R92.1 Mammographic calcification found on diagnostic imaging of breast
CPT/HCPCS: 77066; G0279

== ENCOUNTER → 2022-11-27 08:46 | Outpatient (CLI) | payer MEDICARE, OTHER, SELFPAY ==
[2021-08-23 15:10] VITALS: BMI 21.2
--- NOTE | 2022-11-27 08:48 | DI.RAD.S_ITS ---
PROCEDURE: XR SHOULDER LT MIN 2V INDICATIONS: Chronic left shoulder pain TECHNIQUE: 3 views of the shoulder were acquired. COMPARISON: [facility], CR, XR SHOULDER RT MIN 2V, 02/12/2018, 18:38. FINDINGS: Bones: No fractures or dislocations. No suspicious bony lesions. Visualized ribs appear intact. Mild degenerative changes noted in the AC joint Soft tissues: No suspicious soft tissue calcifications. IMPRESSION: Mild left AC joint hypertrophy Approved by: Jeremie Colon M.D. on 11/27/2022 at 12:24
[2022-11-27 09:47] LABS: Add Manual Diff / Slide Review NO; Basophils Absolute Auto 100 /uL (0-100); Basophils Percent Auto 1.4 % (0-2); Eosinophils Absolute Auto 200 /uL (0-450); Eosinophils Percent Auto 4.5 % (2-4); Hematocrit 37.8 % (36-46); Hemoglobin 12.9 g/dL (12.0-16.0); Lymphocytes Absolute Auto 1600 /uL (1100-4500); Lymphocytes Percent Auto 32.7 % (25-40); Mean Corpuscular HGB Conc 34.2 % (30-36); Mean Corpuscular Hemoglobin 31.6 PG (26-34); Mean Corpuscular Volume 92.3 fL (80-100); Monocytes Absolute Auto 600 /uL (0-900); Neutrophils Absolute Auto 2500 /uL (1500-7000); Neutrophils Percent Auto 49.4 % (50-75); Platelet Count 253 X10^3/uL (150-400); Red Cell Distribution Width 12.9 % (11.6-14.8)
[2022-11-27 09:53] LABS: Alanine Aminotransferase 24 IU/L (<35); Albumin 4.2 g/dL (3.5-5.0); Albumin Globulin Ratio 1.6 (1.0-2.8); Alkaline Phosphatase 64 U/L (38-126); Aspartate Aminotransferase 25 IU/L (14-36); BUN Creatinine Ratio 23.5 (6-22); Blood Urea Nitrogen 16 mg/dL (7-17); Calcium 9.3 mg/dL (8.4-10.2); Carbon Dioxide 30 mmol/L (22-32); Chloride 102 mmol/L (98-107); Cholesterol 192 mg/dL (140-199); Estimated Glomerular Filt Rate > 60 mL/min (>60); Globulin 2.7 g/dL (1.7-4.1); Glucose 94 mg/dL (80-110); HDL Cholesterol 73 mg/dL (40-60); HEMOLYSIS < 15 (0-50); LDL Cholesterol Calculated 103 mg/dL (<100); Potassium 4.1 mmol/L (3.4-5.1); Sodium 136 mmol/L (137-145); Total Protein 6.9 g/dL (6.3-8.2); Triglycerides 79 mg/dL (35-150)
[2022-11-27 10:23] LABS: TSH w/ Reflex to FT4 2.05 uIU/mL (0.47-4.68)
== END ==
PROVIDERS: PCP Family Medicine; Referring Provider Family Medicine; Visit Provider Family Medicine
DX: M25.512 Pain in left shoulder (principal); E03.9 Hypothyroidism, unspecified; I10 Essential (primary) hypertension
CPT/HCPCS: 36415; 73030; 80053; 80061; 84443; 85025

== ENCOUNTER → 2023-05-31 14:03 | Outpatient (CLI) | payer MEDICARE, OTHER, SELFPAY ==
[2021-08-23 15:10] VITALS: BMI 21.2
--- NOTE | 2023-05-31 14:06 | DI.RAD.S_ITS ---
PROCEDURE: XR HIP W PEL IF DONE RT 2V INDICATIONS: Chronic right low back pain TECHNIQUE: AP pelvis with lateral view(s) of the right hip(s). COMPARISON: [facility], CR, XR LUMBAR SPINE 2-3V, 06/06/2021, 14:24. [facility], CR, XR LUMBAR SPINE MIN 4V, 05/31/2023, 14:26. FINDINGS: Bones: No fractures or dislocations. Pelvic ring appears intact. No suspicious bony lesions. Mild symmetric osteoarthritic changes in hips and sacroiliac joints. Degenerative and postsurgical changes in the lower lumbar spine. Soft tissues: The visualized bowel gas pattern is normal. No suspicious soft tissue calcifications. IMPRESSION: Mild osteoarthritis. Dictated by: Carlitos David M.D. on 05/31/2023 at 16:19 Approved by: Carlitos David M.D. on 05/31/2023 at 16:20
--- NOTE | 2023-05-31 14:06 | DI.RAD.S_ITS ---
Bone Density Report Name: PAULO SORTO Age: 77 Sex: Female Ethnicity: White Date of : 1945 Indication: osteopenia; Referring Provider: BIANCA ORTIZ Study: Bone densitometry was performed. Exam Date: May 31, 2023 Accession number: [id number] Bone Density: Region BMD T-score Z-score Classification AP Spine(L1, L2) 0.915 -0.6 1.9 Normal Femoral Neck (Left) 0.684 -1.5 0.8 Osteopenia Total Hip (Left) 0.800 -1.2 0.9 Osteopenia Femoral Neck (Right) 0.725 -1.1 1.2 Osteopenia Total Hip (Right) 0.739 -1.7 0.4 Osteopenia Total Hip Mean 0.770 -1.5 0.7 Osteopenia World Health Organization criteria for BMD impression classify patients as: Normal (T-score at or above -1.0), Osteopenia (T-score between -1.0 and -2.5), or Osteoporosis (T-score at or below -2.5). 10-year Fracture Risk(1): Major Osteoporotic Fracture 11% Hip Fracture 2.8% Reported Risk Factors: [place] (), Neck BMD=0.684, BMI=20.7 (1) FRAX(R) Version 3.08. Fracture probability calculated for an untreated patient. Fracture probability may be lower if the patient has received treatment. Previous Exams: -- Region Exam Age BMD T-score BMD Change BMD Change Date g/cm2 vs Baseline vs Previous -- AP Spine (L1-L2) 05/31/2023 77 0.915 -0.6 -0.116 (-11.3%)# -0.046 (-4.8%)# 11/28/2019 74 0.961 -0.2 -0.070 (-6.8%)* -0.027 (-2.7%)* 10/13/2013 68 0.988 0.1 -0.043 (-4.2%)* -0.043 (-4.2%)* 10/12/2009 64 1.031 0.5 Total Hip(Left) 05/31/2023 77 0.800 -1.2 -0.111 (-12.2%)# -0.028 (-3.4%)# 11/28/2019 74 0.829 -0.9 -0.083 (-9.1%)* -0.066 (-7.3%)* 10/13/2013 68 0.894 -0.4 -0.017 (-1.9%) -0.017 (-1.9%) 10/12/2009 64 0.911 -0.3 Total Hip(Right) 05/31/2023 77 0.739 -1.7 -0.140 (-15.9%)# -0.064 (-7.9%)# 11/28/2019 74 0.802 -1.1 -0.076 (-8.7%)* -0.057 (-6.7%)* 10/13/2013 68 0.860 -0.7 -0.019 (-2.1%) -0.019 (-2.1%) 10/12/2009 64 0.878 -0.5 -- *Denotes significance at 95% confidence level, LSC for AP Spine = 0.022 g/cm2, LSC for Total Hip = 0.027 g/cm2 Rate of change results reflect vertebral levels common to all scans # Denotes dissimilar scan types or analysis methods Impression: The patient has low bone mass, based on the Right Total Hip T-score. The patient has an estimated ten-year risk of hip fracture of 2.8% and an estimated ten-year risk of major fracture of 11%, based on the WHO FRAX algorithm. No significant bone loss was observed. Discussion: BONE DENSITY IS LOW AT ONE OR MORE SKELETAL SITES. This patient's lowest T-score is low at one or more skeletal sites. It meets the World Health Organization's (WHO) criteria for low bone mass (T-score between -1.0 and -2.5). The patient's 10-year risk of fracture as calculated by FRAX is less than the threshold where pharmacological therapy is recommended by the National Osteoporosis Foundation (NOF). However, all treatment decisions require clinical judgment and consideration of individual patient factors, including patient preferences, comorbidities, previous drug use, risk factors not captured in the FRAX model (e.g., frailty, falls, vitamin D deficiency, increased bone turnover, interval significant decline in bone density) and possible under or overestimation of fracture risk by FRAX. The patient should follow a healthful lifestyle (good nutrition with adequate calcium and vitamin D, and appropriate weight-bearing exercise). Follow-Up: Consider repeating this study in 2 to 3 years to reassess this patient's status, or sooner if there is some new clinical indication. Reported by: SHIRA NIEVES M.D. on 05/31/2023 2:42:00 PM.
--- NOTE | 2023-05-31 14:06 | DI.RAD.S_ITS ---
PROCEDURE: XR LUMBAR SPINE MIN 4V INDICATIONS: Chronic right low back pain TECHNIQUE: 5 views of the lumbar spine were acquired, including bilateral oblique views. COMPARISON: MR, MR LUMBAR SPINE WO CON, 06/09/2021, 12:22. [facility], CR, XR LUMBAR SPINE 2-3V, 06/06/2021, 14:24. FINDINGS: Bones: 5 upp-cwd-[id number] vertebrae are present. There is normal bony alignment. No vertebral body compression fractures. No suspicious bony lesions. Postsurgical changes with discectomy and posterior fusion at L3-L4. Surgical hardware appear intact. Subtle lucency is noted surrounding the L4 pedicular screws. There is degenerative disease, moderate at L4-L5 and L5-S1, mild at other levels. Moderate facet arthropathy at L4-L5 and L5-S1. Soft tissues: Overlying bowel gas pattern is normal. No suspicious soft tissue calcifications. Oblique images: No pars defects. IMPRESSION: 1. Degenerative and postsurgical changes in lumbar spine. 2. Discectomy and posterior fusion at L3-L4. Question lucencies surrounding the L4 pedicular screws. Consider CT for further evaluation if clinically indicated. Dictated by: Carlitos David M.D. on 05/31/2023 at 16:00 Approved by: Carlitos David M.D. on 05/31/2023 at 16:06
== END ==
PROVIDERS: PCP Family Medicine; Referring Provider Family Medicine; Visit Provider Family Medicine
DX: M51.36 Other intervertebral disc degeneration, lumbar region (principal); M51.37 Other intervertebral disc degeneration, lumbosacral region; M47.816 Spondylosis without myelopathy or radiculopathy, lumbar region; M47.817 Spondylosis without myelopathy or radiculopathy, lumbosacral region; M43.16 Spondylolisthesis, lumbar region; M48.061 Spinal stenosis, lumbar region without neurogenic claudication; M25.551 Pain in right hip; M54.50 Low back pain, unspecified; M81.0 Age-related osteoporosis without current pathological fracture; G89.29 Other chronic pain; Z98.1 Arthrodesis status
CPT/HCPCS: 72110; 73502; 77080

== ENCOUNTER → 2023-07-04 15:45 | Outpatient (CLI) | payer MEDICARE, OTHER, SELFPAY ==
[2021-08-23 15:10] VITALS: BMI 21.2
--- NOTE | 2023-07-04 15:46 | DI.CT.S_ITS ---
PROCEDURE: CT LUMBAR SPINE WO CON INDICATIONS: Back Pain TECHNIQUE: Noncontrast 3 mm thick sections acquired from the T12 level to the sacrum. Sagittal and coronal reformats were constructed. For radiation dose reduction, the following was used: automated exposure control. COMPARISON: None. FINDINGS: Image quality: Excellent. Bones: Straightening the normal lumbar lordosis. Mild anterolisthesis of L3 on L4. Posterior spinal fixation L3-L4, laminectomy and discectomy. The hardware appears intact without surrounding fracture or lucency. No acute vertebral body compression fractures. Diffusely decreased osseous mineralization. Multilevel degenerative changes with disc height loss, degenerative endplate changes and spurring. This is most pronounced at L4-5 and L5-S1. Facet arthropathy is present. No suspicious lytic or blastic bony lesions. No pars defects. There is probable severe central canal stenosis at L2-L3. Central canal otherwise appears patent. Moderate left osseous neural foraminal stenosis at L4-5. Mild osseous neural foraminal stenosis at other levels. Soft tissues: No retroperitoneal masses or hematomas. Visualized aorta is normal in caliber. Atherosclerotic vascular calcifications. Simple appearing cysts within the left pelvis measuring 2.6 x 2.3 cm. IMPRESSION: Multilevel degenerative changes of the lumbar spine status with postsurgical sequela at L3-L4. There is likely severe central canal stenosis at L2-L3. MRI can be obtained for further evaluation if indicated. Simple appearing cyst within left pelvis measuring 2.6 cm. Given patient's age, pelvic ultrasound is recommended for further evaluation. Dictated by: Hua Adame M.D. on 07/05/2023 at 8:00 Approved by: Hua Adame M.D. on 07/05/2023 at 8:05
== END ==
LOC: CT 15:46
PROVIDERS: PCP Family Medicine; Referring Provider Family Medicine; Visit Provider Family Medicine
DX: M48.061 Spinal stenosis, lumbar region without neurogenic claudication (principal); M47.816 Spondylosis without myelopathy or radiculopathy, lumbar region; M43.16 Spondylolisthesis, lumbar region; M54.50 Low back pain, unspecified; N94.89 Other specified conditions associated with female genital organs and menstrual cycle; R93.7 Abnormal findings on diagnostic imaging of other parts of musculoskeletal system; G89.29 Other chronic pain; Z98.1 Arthrodesis status
CPT/HCPCS: 72131

== ENCOUNTER → 2023-07-09 12:56 | Outpatient (CLI) | payer MEDICARE, OTHER, SELFPAY ==
[2021-08-23 15:10] VITALS: BMI 21.2
--- NOTE | 2023-07-09 12:58 | DI.US.S_ITS ---
PROCEDURE: US PELVIC COMPLETE INDICATIONS: LEFT ADNEXAL CYST ON RECENT CT TECHNIQUE: Real-time scanning was performed of the pelvic organs, with image documentation. Additional endovaginal scanning was necessary due to incomplete visualization of the adnexal and endometrial structures by transabdominal scanning. COMPARISON: [facility], CT, CT LUMBAR SPINE WO CON, 07/04/2023, 15:52. FINDINGS: Uterus: Absent Ovaries: Focus of decreased echogenicity is present within the region of the left adnexa measuring 2.4 x 2.1 x 2.[address] abnormality. No ovarian tissue is clearly identified. Other: No pathologic free abdominal or pelvic fluid. IMPRESSION: Left para ovarian simple cyst. We strive to produce accurate, complete, and clear reports of imaging services. To assist us in improving patient care, this report was composed using standard report templates and voice recognition software. Therefore, it may contain abnormal punctuation, insertions and/or omissions. Occasional wrong-word or sound-alike substitutions may occur. Though we review the report and make efforts to correct it, we do recommend that the report be read carefully in proper context to recognize any text inaccuracies. Dictated by: Abbie Garcia M.D. on 07/09/2023 at 17:21 Approved by: Abbie Garcia M.D. on 07/09/2023 at 17:24
== END ==
LOC: US 12:57
PROVIDERS: PCP Family Medicine; Referring Provider Family Medicine; Visit Provider Family Medicine
DX: N83.292 Other ovarian cyst, left side (principal); R52 Pain, unspecified
CPT/HCPCS: 76830; 76856

== ENCOUNTER → 2023-07-11 10:14 | Outpatient (CLI) | payer MEDICARE, OTHER, SELFPAY ==
[2021-08-23 15:10] VITALS: BMI 21.2
[2023-07-11 11:10] LABS: Influenza A - CEPHEID Flu A NEGATIVE (NEGATIVE); Influenza B - CEPHEID Flu B NEGATIVE (NEGATIVE); Respiratory Syncytial Virus Negative (Negative)
[2023-07-11 11:11] LABS: COVID-19 CEPHEID 4-PLEX PCR Negative (Negative)
== END ==
PROVIDERS: PCP Family Medicine; Visit Provider Physician Assistant
DX: R05.9 Cough, unspecified (principal); R06.02 Shortness of breath
CPT/HCPCS: 0241U

== ENCOUNTER → 2023-08-10 11:19 | Outpatient (CLI) | payer MEDICARE, OTHER, SELFPAY ==
[2023-07-11 10:13] VITALS: BMI 21.2
--- NOTE | 2023-08-10 11:20 | DI.US.S_ITS ---
PROCEDURE: US CAROTID DOPPLER BI INDICATIONS: PROMINENT CAROTID ARTERIES ?ANEURYSMAL TECHNIQUE: Color and pulse Doppler interrogation was performed of both carotid systems, with image documentation and velocity measurements. COMPARISON: None. FINDINGS: Stenosis calculations are based on SRU (Society of Radiologists in Ultrasound) criteria. The flow velocities and the arterial waveforms are normal within both carotid arterial systems. Atherosclerotic plaque is seen on both sides. The estimated degree of internal carotid artery stenosis is less than 50%. No aneurysm is seen. Antegrade flow is confirmed within both vertebral arteries. IMPRESSION: No aneurysm can be seen. No hemodynamically significant stenosis is seen. Atherosclerotic plaque is noted bilaterally. Dictated by: Ridge London M.D. on 08/10/2023 at 18:24 Approved by: Ridge London M.D. on 08/10/2023 at 18:24
== END ==
LOC: US 11:19
PROVIDERS: PCP Family Medicine; Referring Provider Family Medicine; Visit Provider Family Medicine
DX: I65.23 Occlusion and stenosis of bilateral carotid arteries (principal); I77.9 Disorder of arteries and arterioles, unspecified; E03.9 Hypothyroidism, unspecified; N83.202 Unspecified ovarian cyst, left side; M54.50 Low back pain, unspecified; N39.46 Mixed incontinence; G89.29 Other chronic pain
CPT/HCPCS: 93880

== ENCOUNTER 2023-10-16 13:26 | Outpatient (CLI) | payer MEDICARE, OTHER, SELFPAY ==
[2023-07-11 10:13] VITALS: BMI 21.2
[2023-10-16] VITALS (9 sets, daily range): BP systolic 129–168; BP diastolic 58–73; PULSE 76–84; RESP 14–25; TEMP 36; O2SAT 97–100
--- NOTE | 2023-10-16 14:00 | DI.RAD.S_ITS ---
PROCEDURE: PAIN L/S FACET INJ/BLK 1ST VANIA INDICATIONS: Bilateral L4-L5 and S1 medial branch block LA COMPARISON: [facility], CR, XR LUMBAR SPINE MIN 4V, 05/31/2023, 14:26. FINDINGS: Fluoroscopic spot filming was performed to verify placement of spinal needles at the bilateral L4, L5, and S1 levels, as labeled on the films. Appropriate locations of the needle tips were confirmed by injection of iodinated contrast. IMPRESSION: Intraprocedural examination demonstrates appropriate needle positioning. Approved by: Stevan Owen M.D. on 10/16/2023 at 20:14
[2023-10-16] MEDS: MIDAZOLAM 2 MG/2 ML VIAL IV (14:26)
[2023-10-16] MEDS: iopamidoL 15 ML VIAL 3 ML INJ (14:32)
[2023-10-16] MEDS: LIDOCAINE 1% 20 ML 5 ML INJ (14:32)
[2023-10-16] MEDS: BUPIVACAINE 0.5% (PF) 10 ML VIAL 5 ML INJ (14:32)
--- NOTE | 2023-10-16 14:43 | PM.PROC.IR.1 ---
Date/Time/Diagnoses Date of procedure: 10/16/23 Time of procedure: 14:43 Pre-procedure diagnosis: 1. FACET ARTHROPATHY Post-procedure diagnosis: same Procedure Notes Procedure: 1. BILATERAL- L4, L5 and S1 DIAGNOSTIC MB BLOCKS with LA Anesthetic Indications: Ritu is referred by Dr. Desai for treatment of Bilateral Axial LBP. Physician: Jordi Memrbeno Total Fluoroscopy time (seconds): 8 Total sedation minutes: 13 Complications: none Procedure in detail & Post-procedure care: DESCRIPTION OF PROCEDURE Fluoroscopically guided, contrast-controlled bilateral L4, L5 and S1 medial branch blocks with 0.5cc of 0.5% Marcaine. Following review of allergy and review of potential side effects and complications, including, but not necessarily limited to, infection, allergic reaction, local tissue breakdown, nerve injury, paralysis, stroke and possible , the patient indicated that the patient understood and agreed to proceed. An informed consent document was signed by the patient, witnessed by a nurse, and placed in the patient's chart. After review of previous anaesthesic history and IV conscious sedation the patient was deemed safe to proceed with today's procedure with IV conscious sedation as ASA class II designation. Safety time-out was performed to confirm patient ID, procedure to be performed and site of procedure. IV sedation was accomplished with a combination of 3mg of Versed was administered by the RN after DO order, titrated to patient comfort during the course of the procedure while the patient remained responsive to all verbal commands In the prone position, following sterile prep and drape of the lumbar region, the right L4, L5 and S1 anatomical location of the medial branch of the dorsal ramus was identified fluoroscopically. Subsequently an anesthetic skin wheal using 1% lidocaine solution was initiated at each of the anatomical spots. Subsequently then a 22-gauge 3.5-inch spinal needle was atraumatically introduced and advanced under fluoroscopic guidance at each of the corresponding sites at the right L4, L5 and S1 MB. After negative aspiration, 0.2cc of Isovue 200 was injected, confirming placement without vascular or intrathecal uptake. Subsequently then 0.5cc of 0.5% Marcaine solution was injected at each of the corresponding sites at the right L4, L5 and S1 medial branch locations. The identical procedure was replicated on the left. The patient tolerated the procedure well without signs or symptoms of complications prior to transfer to the recovery area continued monitoring without incident. Post-procedure, the patient was monitored initiating provocative activities to measure the amount of relief from block of the facetogenic pain. The patient reported a VAS of 7 prior to the procedure and a post-procedure VAS of 1. It has been a pleasure to assist in the diagnostic and therapeutic care of your patient. POST OP INSTRUCTIONS The patient was provided with a Pain Log to complete over the next several hours and subsequent days prior to the patient's follow up with the ordering physician. If the patient has steam drier operator relief to the solution applied, then they may be a candidate for medial branch rhizotomy. The patient is aware, was provided, once again, with a Pain Log and will follow up with the referring physician for review and clinical correlation
== END 2023-10-16 14:56 | disposition home or self-care (01) ==
PROVIDERS: PCP Family Medicine; Referring Provider Physical Medicine & Rehabilitation; Visit Provider Physical Medicine & Rehabilitation
DX: M47.816 Spondylosis without myelopathy or radiculopathy, lumbar region (principal); M47.817 Spondylosis without myelopathy or radiculopathy, lumbosacral region
CPT/HCPCS: 64493; 64494; 64495; 99152; 99153; J2250

== ENCOUNTER → 2023-11-23 13:02 | Outpatient (CLI) | payer MEDICARE, OTHER, SELFPAY ==
[2023-07-11 10:13] VITALS: BMI 21.2
--- NOTE | 2023-11-23 13:03 | DI.MG.S_ITS ---
BILATERAL DIGITAL SCREENING MAMMOGRAM 3D/2D WITH CAD WITH AUGMENTATION: 11/23/2023 CLINICAL: Routine screening. Comparison is made to exams dated: 04/20/2022 mammogram, 03/03/2021 mammogram, 01/28/2020 mammogram, and 01/21/2018 mammogram - [facility]. There are scattered areas of fibroglandular density in both breasts (category b / 25%-50% glandular tissue). Current study was also evaluated with a Computer Aided Detection (CAD) system. Bilateral breast implants are stable and intact. No significant masses, calcifications, or other findings are seen in either breast. There has been no significant interval change. IMPRESSION: NEGATIVE There is no mammographic evidence of malignancy. A 1 year screening mammogram is recommended. Based on the Tyrer Cuzick model (a risk assessment model) the patient's lifetime risk is 1.5% and her 10 year risk is 0.0%. According to the ACR, ACS, and NCCN guidelines, an annual breast MRI exam along with mammogram is recommended if the patient's lifetime risk is 20% or greater. This exam was interpreted at Station ID: [id number]. NOTE: For mammograms, a report in lay terms will be sent to the patient. Approximately 15% of breast malignancies will not be visualized mammographically. In the management of a palpable breast mass, a negative mammogram must not discourage biopsy of a clinically suspicious lesion. Electronically Signed By: Vishnu craft/clair:11/23/2023 15:46:18 letter sent: Normal Exam ACR BI-RADS Category 1: Negative [id number]
== END ==
PROVIDERS: PCP Family Medicine; Referring Provider Family Medicine; Visit Provider Family Medicine
DX: Z12.31 Encounter for screening mammogram for malignant neoplasm of breast (principal); R92.323 Mammographic fibroglandular density, bilateral breasts
CPT/HCPCS: 77063; 77067

== ENCOUNTER → 2023-12-21 14:52 | Outpatient (CLI) | payer MEDICARE, OTHER, SELFPAY ==
[2023-07-11 10:13] VITALS: BMI 21.2
--- NOTE | 2023-12-21 14:53 | DI.ECHO.S_ITS ---
[facility] : : [id number] : [place] : : [id number] : : Phone: [phone] Echocardiogram Report + + :Name: PAULO SORTO Study Date: 12/21/2023 Height: 63 in : :[facility] ReadingLocation: Weight: 115 lb : : Gender: Female BSA: 1.5 m2 : :: 1945 Age: 78 yrs BP: 125/76 mmHg: :Reason For Study: MURMUR : :Ordering Physician: DIANA, : :BIANCA Performed By: Gilberto Carter : :Referring: BIANCA ORTIZ : + + Interpretation Summary The study quality was technically difficult. The ejection fraction is estimated to be 60-65%. Diastolic parameters suggest probable normal left ventricular diastolic function and normal filling pressures. The right ventricular systolic function is normal. The right ventricular systolic pressure is estimated to be at least 21.3 mmHg based on an estimated right atrial pressure of 3 mm Hg. The peak aortic velocity is 2.27 m/sec. The aortic valve mean gradient is 11.3 mmHg. The calculated aortic valve area is 1.0 cm2. There is moderate aortic stenosis. Procedure: A two-dimensional transthoracic echocardiogram with color flow and Doppler was performed. There is no prior echocardiogram noted for this patient. The study quality was technically difficult. PROBABLE A FIB, POOR EKG SIGNAL. Left Ventricle: The left ventricle is normal in size and wall thickness. The ejection fraction is estimated to be 60-65%. Left ventricular wall motion is normal. Diastolic parameters suggest probable normal left ventricular diastolic function and normal filling pressures. Right Ventricle: The right ventricle is normal size. The right ventricular systolic function is normal. Atria: The left atrial size is normal. Right atrial size is normal. The interatrial septum is not well visualized. Mitral Valve: The mitral valve is normal. MAC. There is no mitral valve stenosis. There is trace mitral regurgitation. Aortic Valve: There is moderate aortic valve sclerosis. There is moderate aortic stenosis. The peak aortic velocity is 2.27 m/sec. The aortic valve mean gradient is 11.3 mmHg. The calculated aortic valve area is 1.0 cm2. There is mild aortic regurgitation. Tricuspid Valve: The tricuspid valve is not well visualized, but is grossly normal. There is no tricuspid stenosis. There is mild tricuspid regurgitation. The right ventricular systolic pressure is estimated to be at least 21.3 mmHg based on an estimated right atrial pressure of 3 mm Hg. Pulmonic Valve: The pulmonic valve is not well visualized. There is no pulmonic valvular stenosis. There is a trace or physiologic amount of pulmonic regurgitation. Great Vessels: The aortic root is normal size. The dimensions of the ascending aorta are normal. The IVC is of normal diameter and collapses greater than 50% with a sniff. This suggests a low right atrial pressure of 3 mm Hg. Pericardium/ Pleura There is no pericardial effusion. There is no pleural effusion. MMode/2D Measurements & Calculations LVIDd: 3.6 cm LVOT diam: 1.9 cm LVIDs: 2.4 cm Ao root diam: 2.7 cm FS: 33.1 % asc Aorta Diam: 3.1 cm IVSd: 0.92 cm Ao Arch Diam (Prox Trans): 2.1 cm LVPWd: 0.88 cm LV melgoza. diameter/BSA (cm/m^2): 2.4 LV sys. diameter/BSA (cm/m^2): 1.6 LA A2 area: 10.9 cm2 RA long axis: 3.9 cm LA A4 area: 15.7 cm2 RA area: 10.7 cm2 LA length (vol): 4.4 cm RA vol: 24.7 ml LA vol: 32.7 ml RA : 16.1 ml/m2 LA vol index: 21.4 ml/m2 IVC diam: 1.4 cm RVD1 (basal): 2.8 cm RVD2 (mid): 2.4 cm TAPSE: 2.4 cm Doppler Measurements & Calculations Ao V2 max: 227.2 cm/sec LVOT Max Baltazar: 84.9 cm/sec Ao V2 mean: 160.6 cm/sec LV V1 max P.9 mmHg Ao max P.6 mmHg LV V1 VTI: 17.5 cm Ao mean P.3 mmHg DYLON(I,D): 0.95 cm2 Ao V2 VTI: 51.3 cm DYLON(V,D): 1.0 cm2 sev ratio: 0.34 DYLON indexed to BSA (cm^2/m^2): 0.62 AI P1/2t: 309.5 msec AI dec slope: 414.0 cm/sec2 MV E max baltazar: 37.9 cm/sec TR max baltazar: 212.0 cm/sec MV A max baltazar: 67.9 cm/sec TR max P.3 mmHg MV E/A: 0.56 PA V2 max: 90.3 cm/sec Med Peak E' Baltazar: 4.9 cm/sec PA V2 mean: 60.5 cm/sec E/E' med: 7.7 PA mean P.7 mmHg Lat Peak E' Baltazar: 8.3 cm/sec PA pr(Accel): 41.3 mmHg E/E' lat: 4.6 E/e' average: 6.1 MV dec time: 0.15 sec SV(LVOT): 48.8 ml Reading Physician:ALEXANDRU
== END ==
PROVIDERS: PCP Family Medicine; Referring Provider Family Medicine; Visit Provider Family Medicine
DX: I08.2 Rheumatic disorders of both aortic and tricuspid valves (principal); R01.1 Cardiac murmur, unspecified; R53.82 Chronic fatigue, unspecified
CPT/HCPCS: 93306

== ENCOUNTER → 2024-01-03 09:48 | Outpatient (CLI) | payer MEDICARE, OTHER, SELFPAY ==
[2023-07-11 10:13] VITALS: BMI 21.2
[2024-01-03 10:12] LABS: Add Manual Diff / Slide Review NO; Basophils Absolute Auto 100 /uL (0-100); Basophils Percent Auto 1.4 % (0-2); Eosinophils Absolute Auto 200 /uL (0-450); Eosinophils Percent Auto 3.8 % (2-4); Hematocrit 39.8 % (36-46); Hemoglobin 13.4 g/dL (12.0-16.0); Lymphocytes Absolute Auto 1800 /uL (1100-4500); Lymphocytes Percent Auto 33.2 % (25-40); Mean Corpuscular HGB Conc 33.6 % (30-36); Mean Corpuscular Hemoglobin 31.3 PG (26-34); Mean Corpuscular Volume 93.3 fL (80-100); Monocytes Absolute Auto 600 /uL (0-900); Monocytes Percent Auto 11.2 % (3-14); Neutrophils Absolute Auto 2700 /uL (1500-7000); Neutrophils Percent Auto 50.4 % (50-75); Platelet Count 269 X10^3/uL (150-400); Red Blood Cell Count 4.27 X10^6/uL (4.0-5.2); Red Cell Distribution Width 13.3 % (11.6-14.8); White Blood Cell Count 5.4 X10^3/uL (4.5-11.0)
[2024-01-03 10:32] LABS: Alanine Aminotransferase 20 IU/L (<35); Albumin 4.2 g/dL (3.5-5.0); Albumin Globulin Ratio 1.4 (1.0-2.8); Alkaline Phosphatase 64 U/L (38-126); Aspartate Aminotransferase 26 IU/L (14-36); BUN Creatinine Ratio 26.9 (6-22); Bilirubin Total 1.2 mg/dL (0.2-1.3); Blood Urea Nitrogen 18 mg/dL (7-17); Calcium 8.7 mg/dL (8.4-10.2); Carbon Dioxide 28 mmol/L (22-32); Chloride 110 mmol/L (98-107); Cholesterol 197 mg/dL (140-199); Estimated Glomerular Filt Rate > 60 mL/min (>60); Glucose 93 mg/dL (80-110); HDL Cholesterol 74 mg/dL (40-60); HEMOLYSIS < 15 (0-50); LDL Cholesterol Calculated 110 mg/dL (<100); Potassium 4.3 mmol/L (3.4-5.1); Sodium 141 mmol/L (137-145); Total Protein 7.2 g/dL (6.3-8.2); Triglycerides 63 mg/dL (35-150)
[2024-01-03 10:47] LABS: Vitamin D 25 Hydroxy (D3) 40.9 ng/mL (30.0-100.0)
[2024-01-03 11:01] LABS: TSH w/ Reflex to FT4 2.21 uIU/mL (0.47-4.68)
[2024-01-03 11:59] LABS: Creatinine Urine Random 116.77 mg/dL
[2024-01-03 12:05] LABS: Microalbumin Urine Random < 0.6 mg/dL (0-1.6)
[2024-01-03 16:11] LABS: Hep C Virus Ab w/Reflex Quant NEGATIVE s/c (NEGATIVE)
[2024-01-05 03:41] LABS: Apolipoprotein B 89 mg/dL (<90)
== END ==
PROVIDERS: PCP Family Medicine; Referring Provider Family Medicine; Visit Provider Family Medicine
DX: E03.9 Hypothyroidism, unspecified (principal); M48.061 Spinal stenosis, lumbar region without neurogenic claudication; M43.16 Spondylolisthesis, lumbar region; R53.83 Other fatigue; I10 Essential (primary) hypertension; M25.512 Pain in left shoulder; M47.816 Spondylosis without myelopathy or radiculopathy, lumbar region; E78.5 Hyperlipidemia, unspecified
CPT/HCPCS: 36415; 80053; 80061; 82043; 82172; 82306; 82570; 83695; 84443; 85025; 86803

== ENCOUNTER 2024-03-04 13:06 | Outpatient (CLI) | payer MEDICARE, OTHER, SELFPAY ==
[2023-07-11 10:13] VITALS: BMI 21.2
[2024-03-04] VITALS (9 sets, daily range): BP systolic 123–151; BP diastolic 57–98; PULSE 77–93; RESP 15–21; TEMP 36.8; O2SAT 96–100
--- NOTE | 2024-03-04 13:45 | DI.RAD.S_ITS ---
PROCEDURE: PAIN L/S FACET INJ/BLK 1ST VANIA INDICATIONS: SPONDYLOSIS COMPARISON: [facility], , PAIN L/S FACET INJ/BLK 1ST VANIA, 10/16/2023, 14:30. FINDINGS: Fluoroscopic spot filming was performed to verify placement of spinal needles at the L4-S1 level(s), as labeled on the films. Appropriate location(s) of the needle tip(s) was confirmed by injection of iodinated contrast. Lumbar fusion hardware is partially seen. IMPRESSION: L4-S1 injections, please see operative note for full details. Dictated by: Jesus Burrell M.D. on 03/04/2024 at 17:49 Approved by: Jesus Burrell M.D. on 03/04/2024 at 17:49
[2024-03-04] MEDS: MIDAZOLAM 2 MG/2 ML VIAL IV (14:11)
[2024-03-04] MEDS: iopamidoL 15 ML VIAL 3 ML INJ (14:14)
[2024-03-04] MEDS: LIDOCAINE 1% 20 ML 5 ML INJ (14:15)
[2024-03-04] MEDS: LIDOCAINE 2% INJ SDV 5ML 10 ML INJ (14:15)
--- NOTE | 2024-03-04 14:33 | PM.PROC.IR.1 ---
Date/Time/Diagnoses Date of procedure: 03/04/24 Time of procedure: 14:33 Pre-procedure diagnosis: 1. FACET ARTHROPATHY Post-procedure diagnosis: same Procedure Notes Procedure: 1. BILATERAL- L4, L5 and S1 DIAGNOSTIC MB BLOCKS with SA Anesthetic Indications: Ritu is referred by Dr. Desai for treatment of Bilateral Axial LBP. Physician: Jordi Membreno Total Fluoroscopy time (seconds): 10 Total sedation minutes: 15 Complications: none Procedure in detail & Post-procedure care: DESCRIPTION OF PROCEDURE Fluoroscopically guided, contrast-controlled bilateral L4, L5 and S1 medial branch blocks with 0.5cc of 2% Lidocaine. Following review of allergy and review of potential side effects and complications, including, but not necessarily limited to, infection, allergic reaction, local tissue breakdown, nerve injury, paralysis, stroke and possible , the patient indicated that the patient understood and agreed to proceed. An informed consent document was signed by the patient, witnessed by a nurse, and placed in the patient's chart. After review of previous anaesthesic history and IV conscious sedation the patient was deemed safe to proceed with today's procedure with IV conscious sedation as ASA class II designation. Safety time-out was performed to confirm patient ID, procedure to be performed and site of procedure. IV sedation was accomplished with a combination of 2mg of Versed was administered by the RN after DO order, titrated to patient comfort during the course of the procedure while the patient remained responsive to all verbal commands In the prone position, following sterile prep and drape of the lumbar region, the right L4, L5 and S1 anatomical location of the medial branch of the dorsal ramus was identified fluoroscopically. Subsequently an anesthetic skin wheal using 1% lidocaine solution was initiated at each of the anatomical spots. Subsequently then a 22-gauge 3.5-inch spinal needle was atraumatically introduced and advanced under fluoroscopic guidance at each of the corresponding sites at the right L4, L5 and S1 MB. After negative aspiration, 0.2cc of Isovue 200 was injected, confirming placement without vascular or intrathecal uptake. Subsequently then 0.5cc of 2% Lidocaine solution was injected at each of the corresponding sites at the right L4, L5 and S1 medial branch locations. The identical procedure was replicated on the left. The patient tolerated the procedure well without signs or symptoms of complications prior to transfer to the recovery area continued monitoring without incident. Post-procedure, the patient was monitored initiating provocative activities to measure the amount of relief from block of the facetogenic pain. The patient reported a VAS of 7 prior to the procedure and a post-procedure VAS of 1. It has been a pleasure to assist in the diagnostic and therapeutic care of your patient. POST OP INSTRUCTIONS The patient was provided with a Pain Log to complete over the next several hours and subsequent days prior to the patient's follow up with the ordering physician. If the patient has cannon fire direction specialist relief to the solution applied, then they may be a candidate for medial branch rhizotomy. The patient is aware, was provided, once again, with a Pain Log and will follow up with the referring physician for review and clinical correlation
--- NOTE | 2024-03-04 15:46 | PC.NURSE ---
Patient has right leg weakness and c/o pain to numbness down to outside of her thigh. stood at chair was able to walk in place, still feels the numbness down her leg and feels her leg is weak like what happened last time. pt stood at chair was able to take steps in place and took some steps in the room right leg started to buckle and patient assisted to sit in chair. Dr Membreno in to assess pt ok to d/c her home. Patient denies any steps to get into her house and her spouse will be home to help her. Pt able to take steps with out leg buckling but still has numbness down the outside of her leg down to her knee. Feels the sensation is improving.
== END 2024-03-04 15:40 | disposition home or self-care (01) ==
PROVIDERS: PCP Family Medicine; Referring Provider Physical Medicine & Rehabilitation; Visit Provider Physical Medicine & Rehabilitation
DX: M47.816 Spondylosis without myelopathy or radiculopathy, lumbar region (principal); M47.817 Spondylosis without myelopathy or radiculopathy, lumbosacral region
CPT/HCPCS: 64493; 64494; 99152; J2250

== ENCOUNTER 2024-05-08 10:40 | Outpatient (CLI) | payer MEDICARE, OTHER, SELFPAY ==
[2023-07-11 10:13] VITALS: BMI 21.2
[2024-05-08] VITALS (13 sets, daily range): BP systolic 124–145; BP diastolic 69–83; PULSE 78–98; RESP 16–20; TEMP 36.4; O2SAT 97–100
--- NOTE | 2024-05-08 10:41 | DI.RAD.S_ITS ---
PROCEDURE: PAIN L/S MED/LAT N RFA BILAT INDICATIONS: Bilateral L4-L5 and S1 medial branch RFA COMPARISON: None. FINDINGS: Fluoroscopic spot filming was performed to verify placement of spinal needles at the L4, L5 and S1 level(s), as labeled on the films. Appropriate location(s) of the needle tip(s) was confirmed by injection of iodinated contrast. IMPRESSION: Fluoro guidance was provided intraoperatively for bilateral L4, L5 and S1 medial branch RFA performed by ordering physician. Dictated by: Eleazar Prince M.D. on 05/08/2024 at 16:03 Approved by: Eleazar Prince M.D. on 05/08/2024 at 16:03
[2024-05-08] MEDS: MIDAZOLAM 2 MG/2 ML VIAL IV (12:09)
[2024-05-08] MEDS: BUPIVACAINE 0.5% (PF) 10 ML VIAL 5 ML INJ (12:12)
[2024-05-08] MEDS: LIDOCAINE 1% 20 ML 5 ML INJ (12:12)
[2024-05-08] MEDS: MIDAZOLAM 5 MG/ML VIAL 1 MG IV (12:31)
--- NOTE | 2024-05-08 12:54 | P.PCN_ITS ---
Date/Time/Diagnoses Date of procedure: 05/08/24 Time of procedure: 12:54 Pre-procedure diagnosis: 1. RECALCITRANT FACET ARTHROPATHY Post-procedure diagnosis: same Procedure Notes Procedure: 1. BILATERAL L4 AND L5 MEDIAL BRANCH RADIOFREQUENCY NEUROTOMY AND S1 DORSAL RAMUS BRANCH RADIOFREQUENCY NEUROTOMY Indications: Ritu is referred by Dr. Desai for treatment of facet arthropathy. Physician: Jordi Membreno Total Fluoroscopy time (seconds): 27 Total sedation minutes: 43 Complications: none Procedure in detail & Post-procedure care: DESCRIPTION OF PROCEDURE Bilateral L4 and L5 medial branch radiofrequency neurotomy and bilateral S1 dorsal ramus radiofrequency neurotomy under fluoroscopy with conscious sedation. The patient is well known to this clinic having undergone previous facet injections with good but temporary relief. The patient has experienced appropriate, concordant relief with previous facet and median branch blocks but the patient's pain has been recalcitrant to further conservative measures. Therefore, based upon the patient's relief and persistent symptoms, the patient is considered an appropriate candidate for facet rhizotomy. All of the patient's questions regarding the risks versus benefits of the procedure, including, but not limited to, bleeding, infection, temporary as well as lasting nerve injury, paralysis, stroke, and , as well treatment alternatives were answered to satisfaction. After obtaining informed consent, denial of pertinent drug allergies, as well as being made aware of the potential risks of bleeding, infection, spinal cord trauma, paralysis, temporary and permanent nerve damage, seizure, stroke, and possible , the patient was brought to the fluoroscopy suite and positioned prone on the fluoroscopy table. The lumbar region was prepped in usual sterile fashion and covered with a fenestrated drape in the usual sterile fashion. Appropriate monitors applied including pulse oximeter, pulse, and blood pressure for regular monitoring throughout the procedure. After review of previous anaesthesic history and IV conscious sedation the patient was deemed safe to proceed with today's procedure with IV conscious sedation as ASA class II designation. Safety time-out was performed to confirm patient ID, procedure to be performed and site of procedure. IV sedation was accomplished with a combination of 3mg of Versed administered by the RN after DO order, titrated to patient comfort during the course of the procedure while the patient remained responsive to all verbal commands. After local infiltration using 1% lidocaine, under fluoroscopic guidance, a 10- cm RF insulated needle with a 10-mm active tip was positioned parallel to the junction of the right sacral ala and the superior articulating process where the S1 dorsal ramus resides. Needle placement was confirmed with motor stimulation of .5v on the right which produced local stimulation without radicular component. The stimulation was then increased to 2v with, once again, only local multifidus stimulation without radicular component. The needle was then removed and the identical procedure was performed along the length of the right L5 medial branch with motor stimulation at .7v on the right. The identical procedure was once again performed along the length of the right L4 medial branch with motor stimulation of .5v on the right. The medial branches were then anesthetised with 0.5% Marcaine. This was then followed by two discreet lesions performed at 80 degrees Celsius for 90 seconds each. The identical procedure was repeated on the left. The patient tolerated the procedure well without signs or symptoms of complications prior to transfer to the recovery area continued monitoring without incident. The patient was then transferred to the recovery area where they were observed for an appropriate period of time after the injection. The patient reported a VAS score of 7 prior to the procedure and a post-procedure VAS of 1. POST OP INSTRUCTIONS The patient was provided a Pain Log to continue to record the patient's response to the target-specific procedure prior to the patient's follow-up visit with the referring physician. Additionally, specific post-injection care instructions and a contact number to our office were provided if concerns arise regarding possible complications associated with the procedure are suspected.
== END 2024-05-08 13:09 | disposition home or self-care (01) ==
LOC: RAD 10:41
PROVIDERS: PCP Family Medicine; Referring Provider Physical Medicine & Rehabilitation; Visit Provider Physical Medicine & Rehabilitation
DX: M47.816 Spondylosis without myelopathy or radiculopathy, lumbar region (principal)
CPT/HCPCS: 64635; 64636; 99152; 99153; J2250

== ENCOUNTER → 2024-08-01 15:49 | Outpatient (CLI) | payer MEDICARE, OTHER, SELFPAY ==
[2024-07-04 16:30] VITALS: BMI 21.2
[2024-08-01 16:11] LABS: Add Manual Diff / Slide Review NO; Basophils Absolute Auto 100 /uL (0-100); Basophils Percent Auto 1.1 % (0-2); Eosinophils Absolute Auto 200 /uL (0-450); Eosinophils Percent Auto 2.8 % (2-4); Hematocrit 40.6 % (36-46); Hemoglobin 13.6 g/dL (12.0-16.0); Lymphocytes Absolute Auto 2500 /uL (1100-4500); Lymphocytes Percent Auto 33.8 % (25-40); Mean Corpuscular HGB Conc 33.4 % (30-36); Mean Corpuscular Hemoglobin 30.8 PG (26-34); Mean Corpuscular Volume 92.2 fL (80-100); Monocytes Absolute Auto 700 /uL (0-900); Monocytes Percent Auto 9.7 % (3-14); Neutrophils Absolute Auto 3800 /uL (1500-7000); Neutrophils Percent Auto 52.6 % (50-75); Platelet Count 280 X10^3/uL (150-400); Red Cell Distribution Width 14.1 % (11.6-14.8); White Blood Cell Count 7.3 X10^3/uL (4.5-11.0)
[2024-08-01 16:38] LABS: Alanine Aminotransferase 23 IU/L (<35); Albumin 4.3 g/dL (3.5-5.0); Albumin Globulin Ratio 1.4 (1.0-2.8); Alkaline Phosphatase 66 U/L (38-126); Aspartate Aminotransferase 28 IU/L (14-36); BUN Creatinine Ratio 31.1 (6-22); Bilirubin Total 0.7 mg/dL (0.2-1.3); Blood Urea Nitrogen 23 mg/dL (7-17); Calcium 9.3 mg/dL (8.4-10.2); Carbon Dioxide 25 mmol/L (22-32); Chloride 102 mmol/L (98-107); Estimated Glomerular Filt Rate > 60 mL/min (>60); Glucose 90 mg/dL (80-110); HEMOLYSIS < 15 (0-50); Potassium 4.2 mmol/L (3.4-5.1); Sodium 133 mmol/L (137-145); Total Protein 7.3 g/dL (6.3-8.2)
[2024-08-01 17:07] LABS: TSH w/ Reflex to FT4 0.04 uIU/mL (0.47-4.68)
[2024-08-01 17:20] LABS: Creatinine Urine Random 84.74 mg/dL
[2024-08-01 17:31] LABS: Microalbumin Urine Random < 0.6 mg/dL (0-1.6)
[2024-08-01 17:38] LABS: Free T4, Direct Thyroxine 1.06 ng/dL (0.78-2.19)
== END ==
LOC: LAB 15:50
PROVIDERS: PCP Family Medicine; Referring Provider Family Medicine; Visit Provider Family Medicine
DX: E78.5 Hyperlipidemia, unspecified (principal); E03.9 Hypothyroidism, unspecified; I10 Essential (primary) hypertension; M48.061 Spinal stenosis, lumbar region without neurogenic claudication; M43.16 Spondylolisthesis, lumbar region; M47.816 Spondylosis without myelopathy or radiculopathy, lumbar region; G89.29 Other chronic pain; M54.50 Low back pain, unspecified
CPT/HCPCS: 36415; 80053; 82043; 82570; 84439; 84443; 85025

== ENCOUNTER → 2024-08-06 09:17 | Outpatient (CLI) | payer MEDICARE, OTHER, SELFPAY ==
[2024-07-04 16:30] VITALS: BMI 21.2
--- NOTE | 2024-08-06 09:18 | DI.NM.S_ITS ---
PROCEDURE: NM JASON PERF SPECT REST & STR Rest and exercise myocardial perfusion SPECT with gated imaging and ejection fraction RADIOPHARMACEUTICAL: 10.8 mCi Tc-99m sestamibi IV at rest and 26.6 mCi Tc-99m sestamibi IV at peak exercise. A one day-protocol was performed. INDICATIONS: Exertional palpitations TECHNIQUE: Radiopharmaceutical was injected at peak stress test, and also at rest. SPECT images were obtained. SPECT myocardial perfusion images were displayed in short axis, horizontal long axis, and vertical long axis views. Gated images were reviewed using [employer] software. COMPARISON: None. CARDIAC STRESS: A standard Shantanu treadmill exercise tolerance test was performed by the patient under the supervision of an attending staff. The patient exercised for 6 minutes and 0 seconds; functional aerobic impairment (NIYA) is -27%. Hemodynamic data: There is normal blood pressure and heart rate response to exercise stress. Patient achieved 109% of maximum predicted heart rate at peak exercise. Symptoms: Patient denied chest pain during exercise. EKG: No diagnostic EKG changes of ischemia; no ectopy. FINDINGS: Raw data: There is good myocardial labeling by radiotracer. No significant motion artifacts. Left ventricle function: Gated images demonstrate normal left ventricle wall thickening. No segmental wall motion abnormality. No transient ischemic dilation; TID is 1.12 (normal less than 1.3). The left ventricle resting end-diastolic volume is 51 mL. Left ventricle stress ejection fraction is 78%; normal values are above 45%. Myocardial perfusion: There is normal distribution of activity in the left and right ventricular myocardium. No fixed or reversible perfusion defects. IMPRESSION: Low risk, normal treadmill nuclear stress test from inducible ischemia standpoint. 1) No perfusion evidence of ischemia or infarction. 2) Normal left ventricular size, wall motion, and systolic function (EF post stress 78%). 3) No diagnostic ST changes during exercise or recovery. 4) No angina during the study. 5) Good exercise tolerance (6.1METs, NIYA -27%). Target heart rate reached. Appropriate BP response to exercise. 6) No prior nuclear stress test available for comparison. Dictated by: Starr Menendez MD on 08/07/2024 at 12:58 Approved by: Starr Menendez MD on 08/07/2024 at 13:00
== END ==
PROVIDERS: PCP Family Medicine; Referring Provider Family Medicine; Visit Provider Family Medicine
DX: I35.0 Nonrheumatic aortic (valve) stenosis (principal); R00.2 Palpitations; I10 Essential (primary) hypertension
CPT/HCPCS: 78452; 93017; A9502

== ENCOUNTER → 2024-09-03 14:22 | Outpatient (CLI) | payer MEDICARE, OTHER, SELFPAY ==
[2024-07-04 16:30] VITALS: BMI 21.2
[2024-09-03 15:50] LABS: Alanine Aminotransferase 20 IU/L (<35); Albumin 4.2 g/dL (3.5-5.0); Albumin Globulin Ratio 1.7 (1.0-2.8); Alkaline Phosphatase 62 U/L (38-126); Aspartate Aminotransferase 25 IU/L (14-36); BUN Creatinine Ratio 30.4 (6-22); Bilirubin Total 0.7 mg/dL (0.2-1.3); Blood Urea Nitrogen 21 mg/dL (7-17); Calcium 9.4 mg/dL (8.4-10.2); Carbon Dioxide 24 mmol/L (22-32); Chloride 103 mmol/L (98-107); Estimated Glomerular Filt Rate > 60 mL/min (>60); Globulin 2.5 g/dL (1.7-4.1); Glucose 98 mg/dL (80-110); HEMOLYSIS < 15 (0-50); Potassium 4.4 mmol/L (3.4-5.1); Sodium 136 mmol/L (137-145); Total Protein 6.7 g/dL (6.3-8.2)
[2024-09-03 16:20] LABS: TSH w/ Reflex to FT4 1.76 uIU/mL (0.47-4.68)
== END ==
PROVIDERS: PCP Family Medicine; Referring Provider Family Medicine; Visit Provider Family Medicine
DX: E78.5 Hyperlipidemia, unspecified (principal); I35.0 Nonrheumatic aortic (valve) stenosis; M47.816 Spondylosis without myelopathy or radiculopathy, lumbar region; M43.16 Spondylolisthesis, lumbar region; M48.061 Spinal stenosis, lumbar region without neurogenic claudication; I10 Essential (primary) hypertension; E03.9 Hypothyroidism, unspecified
CPT/HCPCS: 36415; 80053; 84443

== ENCOUNTER → 2024-09-16 13:29 | Outpatient (CLI) | payer MEDICARE, OTHER, SELFPAY ==
[2024-07-04 16:30] VITALS: BMI 21.2
[2024-09-16 14:48] LABS: Rubella Antibody IgG 0.4 IU/mL (>15)
[2024-09-18 02:07] LABS: Rubeola Measles IgG > 300.0 AU/mL (Immune >16.4)
[2024-09-18 10:11] LABS: Mumps Virus IgG Antibody <9.0 AU/mL (Immune >10.9)
== END ==
PROVIDERS: PCP Family Medicine; Referring Provider Family Medicine; Visit Provider Family Medicine
DX: Z01.84 Encounter for antibody response examination (principal)
CPT/HCPCS: 36415; 86735; 86762; 86765

== ENCOUNTER → 2025-01-13 14:21 | Outpatient (CLI) | payer MEDICARE, OTHER, SELFPAY ==
[2024-07-04 16:30] VITALS: BMI 21.2
--- NOTE | 2025-01-13 14:23 | DI.MG.S_ITS ---
MM screening mammo implant BI: 01/13/2025. BI-RADS: 1 CLINICAL: 79-year old female for bilateral screening mammogram. Tyrer-Cuzick lifetime risk of 0.3%. No personal or first-degree family history of breast cancer. The patient has bilateral implants. PRIOR EXAMS 11/23/2023, 04/20/2022, 08/23/2021, 03/03/2021. MAMMOGRAPHY TECHNIQUE: 2D and 3D (tomosynthesis) digital mammographic views obtained, with additional images as needed for full coverage. Current study was also evaluated with a Computer Aided Detection (CAD) system. DENSITY B. There are scattered areas of fibroglandular density. IMPLANTS Breast implants present. MAMMOGRAPHY FINDINGS Bilateral: No suspicious mass, asymmetry, microcalcification, or other abnormality seen. IMPRESSION: * No evidence of malignancy. RECOMMENDATIONS Bilateral * Annual screening mammography. OVERALL ASSESSMENT CATEGORY BI-RADS-1: Negative. The [employer] recommends annual screening mammography beginning at age 40 for women with average risk of breast cancer. ELECTRONICALLY SIGNED: Marycruz Herman M.D. on 01/13/2025 at 09:02:01 PM PT Interpreting Station ID: [id number]
== END ==
LOC: MAMMO 14:22
PROVIDERS: PCP Family Medicine; Referring Provider Family Medicine; Visit Provider Family Medicine
DX: Z12.31 Encounter for screening mammogram for malignant neoplasm of breast (principal); Z98.82 Breast implant status
CPT/HCPCS: 77063; 77067

== ENCOUNTER → 2025-03-06 14:17 | Outpatient (CLI) | payer MEDICARE, OTHER, SELFPAY ==
[2024-07-04 16:30] VITALS: BMI 21.2
[2025-03-06 15:29] LABS: Alanine Aminotransferase 21 IU/L (<35); Albumin 4.1 g/dL (3.5-5.0); Albumin Globulin Ratio 1.5 (1.0-2.8); Alkaline Phosphatase 62 U/L (38-126); Blood Urea Nitrogen 23 mg/dL (7-17); Calcium 9.0 mg/dL (8.4-10.2); Carbon Dioxide 23 mmol/L (22-32); Chloride 102 mmol/L (98-107); Estimated Glomerular Filt Rate > 60 mL/min (>60); Globulin 2.8 g/dL (1.7-4.1); Glucose 95 mg/dL (70-99); HEMOLYSIS < 15 (0-50); Potassium 4.4 mmol/L (3.4-5.1); Sodium 135 mmol/L (137-145); Total Protein 6.9 g/dL (6.3-8.2)
[2025-03-06 16:00] LABS: TSH w/ Reflex to FT4 1.15 uIU/mL (0.47-4.68)
== END ==
PROVIDERS: PCP Family Medicine; Referring Provider Family Medicine; Visit Provider Family Medicine
DX: E03.9 Hypothyroidism, unspecified (principal); Z79.899 Other long term (current) drug therapy; E87.1 Hypo-osmolality and hyponatremia
CPT/HCPCS: 36415; 80053; 84443

== ENCOUNTER → 2025-04-14 14:38 | Outpatient (CLI) | payer MEDICARE, OTHER, SELFPAY ==
[2024-07-04 16:30] VITALS: BMI 21.2
--- NOTE | 2025-04-14 14:39 | DI.ECHO.S_ITS ---
[facility] : : [address] : : [place] : : [id number] : : Phone: [phone] Echocardiogram Report + + :Name: PAULO SORTO Study Date: 04/14/2025 Height: 63 in : :[facility] ReadingLocation: Weight: 120 lb : : Gender: Female BSA: 1.6 m2 : :: 1945 Age: 79 yrs BP: 133/72 mmHg: :Reason For Study: Aortic stenosis : :Ordering Physician: KRISTI, : :KING Performed By: Franki Hood : :Referring: KING BERRY : + + Interpretation Summary Normal biventricular size and systolic function. LVEF is 60 to 65%. Normal atrial sizes. Moderate aortic stenosis with peak velocity of 2.3 m/s. When compared to TTE dated 12/21/2023, aortic velocity has not increased. Mild to moderate aortic regurgitation. Other findings as below. Procedure: A two-dimensional transthoracic echocardiogram with color flow and Doppler was performed. The study quality was technically adequate. Comparison is made with the echocardiogram of 12/21/2023. The heart rate ranged between 86-90 bpm during the study. Left Ventricle: The left ventricle is normal in size. Left ventricular wall thickness is mildly increased. Left ventricular systolic function is normal. The ejection fraction is estimated to be 60-65%. There are no focal wall motion abnormalities. Grade I diastolic dysfunction with normal left atrial pressure. Right Ventricle: The right ventricle is normal in size and function. Atria: The left atrial size is normal. The right atrium is normal in size. A prominent eustachian valve is noted. There is no Doppler evidence for an interatrial shunt. Mitral Valve: There is mild mitral annular calcification. The mitral valve leaflets appear mildly thickened. There is no mitral valve stenosis. There is mild mitral regurgitation. Aortic Valve: The aortic valve is trileaflet. The aortic valve is heavily calcified. There is moderate aortic stenosis. The calculated aortic valve area is 1.2 cm2. The peak aortic velocity is 2.3 m/sec. The aortic valve mean gradient is 11.4 mmHg. sev ratio: 0.44. There is mild to moderate aortic regurgitation. Tricuspid Valve: The tricuspid valve is not well visualized, but is grossly normal. There is mild tricuspid regurgitation. The right ventricular systolic pressure is estimated to be at least 29 mmHg based on an estimated right atrial pressure of 3 mm Hg. Pulmonic Valve: The pulmonic valve is not well seen, but is grossly normal. There is trace pulmonic regurgitation. Great Vessels: There is aortic root sclerosis/calcification. The aortic root is normal size. The ascending aorta is normal in size. The aortic arch is normal in size. The pulmonary artery is normal size. The IVC is of normal diameter and collapses greater than 50% with a sniff. This suggests a low right atrial pressure of 3 mm Hg. Pericardium/ Pleura There is no pericardial effusion. MMode/2D Measurements & Calculations LVIDd: 3.4 cm LVOT diam: 2.0 cm LVIDs: 2.1 cm Ao root diam: 2.6 cm FS: 38.8 % asc Aorta Diam: 3.4 cm IVSd: 1.0 cm Ao Arch Diam (Prox Trans): 2.2 cm LVPWd: 1.0 cm LV melgoza. diameter/BSA (cm/m^2): 2.2 LV sys. diameter/BSA (cm/m^2): 1.3 LA A2 area: 15.6 cm2 RA long axis: 4.4 cm LA A4 area: 10.0 cm2 RA area: 10.6 cm2 LA length (vol): 3.9 cm RA vol: 21.3 ml LA vol: 33.5 ml RA : 13.7 ml/m2 LA vol index: 21.5 ml/m2 IVC diam: 1.4 cm RVD1 (basal): 2.2 cm RVD2 (mid): 1.7 cm TAPSE: 1.8 cm Doppler Measurements & Calculations Ao V2 max: 226.3 cm/sec LVOT Max Baltazar: 92.6 cm/sec Ao V2 mean: 156.9 cm/sec LV V1 max P.4 mmHg Ao max P.5 mmHg LV V1 VTI: 18.9 cm Ao mean P.4 mmHg DYLON(I,D): 1.3 cm2 Ao V2 VTI: 42.6 cm DYLON(V,D): 1.2 cm2 sev ratio: 0.44 DYLON indexed to BSA (cm^2/m^2): 0.87 AI P1/2t: 459.1 msec AI dec slope: 261.5 cm/sec2 MV E max baltazar: 78.0 cm/sec TR max baltazar: 256.1 cm/sec MV A max baltazar: 74.9 cm/sec TR max P.2 mmHg MV E/A: 1.0 PA V2 max: 93.4 cm/sec Med Peak E' Baltazar: 5.5 cm/sec PA V2 mean: 62.2 cm/sec E/E' med: 14.1 PA mean P.8 mmHg Lat Peak E' Baltazar: 6.7 cm/sec PA pr(Accel): 54.6 mmHg E/E' lat: 11.6 E/e' average: 12.9 MV dec time: 0.21 sec SV(LVOT): 57.4 ml Qp/Qs (V,Ao): 1.0/5.3 Qp/Qs (V,LVOT): 1.0/1.2 Reading Physician:03:44 PM
== END ==
LOC: ECHO 14:38
PROVIDERS: PCP Family Medicine; Referring Provider Internal Medicine Cardiovascular Disease; Visit Provider Internal Medicine Cardiovascular Disease
DX: I08.3 Combined rheumatic disorders of mitral, aortic and tricuspid valves (principal)
CPT/HCPCS: 93306